=== PATIENT | male | born 1945 | race Caucasian/White ===

== ENCOUNTER 2016-10-09 14:32 | Inpatient (IN) | payer MEDICARE ==
[~2016-10-09] VITALS: Ht 182.9 cm; Wt 105.6 kg
[~2016-10-09 14:32] MED LIST: ALOELIQ9 PO; ALPR0.5T3 PO; AMLO5TAB2 PO; EPA1000C PO; HYDR25TA5 PO; LACTCAP8 PO; LOSA50TA PO; MULTTAB67 PO; OMEP20TA PO; ZOLP10TA3 PO
[2016-10-15] MEDS ORDERED: POTA540T PO (09:02)
[2016-10-15] MEDS ORDERED: TAMS0.4C4 PO (09:02)
[2016-10-15] MEDS ORDERED: WARF-18 PO (09:02)
[2016-10-15] MEDS ORDERED: ASCO500C PO (09:02)
[2016-10-15] MEDS ORDERED: WARF-23 PO (09:02)
[2016-10-16] MEDS ORDERED: POVIDONE IODINE 5% (ANTISEPSIS KIT) 4 APPLICATIONS EACH NARE PRN (05:30)
[2016-10-16] MEDS ORDERED: INSULIN HUMAN REGULAR 1,000 UNITS/10 ML VIAL SQ PRN (05:30)
[2016-10-16] MEDS ORDERED: METOPROLOL TARTRATE 25 MG TAB PO PRN (05:30)
[2016-10-16] MEDS ORDERED: VANCOMYCIN 1000 MG/NS 250 ML (for <70 kg) IV SCH ×2 (05:30)
[2016-10-16] MEDS ORDERED: CHLORHEXIDINE GLUCONATE 2 % 1 PACK (2 CLOTHS) TOPICAL PRN (05:30)
[2016-10-16] MEDS ORDERED: SODIUM CHLORID 0.9% 500 ML IV PRN (05:30)
[2016-10-16] MEDS ORDERED: LACTATED RINGER'S 1000 ML IV PRN (05:30)
[2016-10-16] MEDS: CHLORHEXIDINE GLUCONATE 4% SOLN 120 ML BTL TOPICAL SCH ×2 (05:50→06:10)
[2016-10-16 05:58] VITALS: BP 119/67; PULSE 103; RESP 20; TEMP 97.8; O2SAT 96
[2016-10-16] MEDS ORDERED: SODIUM CHLORIDE 0.9% IV SCH (06:00)
[2016-10-16] MEDS ORDERED: EXPAREL PERI-ARTICULAR INJECTION (TOTAL VOL. 60 ML) P-ARTICULR SCH ×2 (06:00)
[2016-10-16] MEDS ORDERED: TRANEXAMIC ACID IV SCH (06:00)
[2016-10-16 06:29] LABS: INTERNATIONAL NORMALIZED RATIO 1.2 RATIO; PROTHROMBIN TIME - PATIENT 12.8 SEC (9.8-11.6)
[2016-10-16] MEDS ORDERED: MIDAZOLAM HCL 2 MG/2 ML VIAL ONE (06:35)
[2016-10-16] MEDS ORDERED: GENTAMICIN SULFATE 80 MG/2 ML VIAL ONE (06:36)
[2016-10-16] MEDS ORDERED: fentaNYL CITRATE 250 MCG/5 ML AMP ONE (06:46)
[2016-10-16] MEDS ORDERED: DEXAMETHASONE SOD PHOS 4 MG/ML VIAL ONE (06:46)
[2016-10-16] MEDS ORDERED: FAMOTIDINE 20 MG/2 ML VIAL ONE (06:46)
[2016-10-16] MEDS ORDERED: ACETAMINOPHEN 1000 MG/100 ML VIAL IV ONE (06:46)
[2016-10-16] MEDS: ceFAZolin 2 GM PREMIX 50 ML IV SCH ×4 (07:48→19:31)
[2016-10-16] MEDS ORDERED: NEOSTIGMINE 3 MG/3 ML SYR IV ONE (08:10)
[2016-10-16] MEDS ORDERED: PROPOFOL 200 MG/20 ML AMP IV ONE (08:10)
[2016-10-16] MEDS ORDERED: LACTATED RINGER'S 1000 ML INJ 1,000 ML IV ONE (08:11)
[2016-10-16] MEDS ORDERED: PHENYLEPH/NS 1000 MCG/10 ML SYR IV ONE (08:11)
[2016-10-16] MEDS ORDERED: ONDANSETRON HCL 4 MG/2 ML VIAL IV PUSH ONE (08:11)
--- NOTE | 2016-10-16 09:34 | PD.OP ---
cc: Jayden Loredo MD Operative Report Date of Surgery: October 16, 2016 Preoperative Diagnosis: Severe left hip osteoarthritis Postoperative Diagnosis: Procedure: Left total hip arthroplasty via anterior approach Anesthesia: Gen. Surgeon: Jayden Loredo General Adjuster(s): YOSELYN Carlin PA-C The surgical procedure was assisted by my physician assistant purchasing manager. My P.A. presence was necessary throughout this case for the manipulation and positioning of the surgical extremity. My P.A. was assisting me throughout the duration of this procedure. The skill set of a physician assistant purchasing manager was medically necessary to complete this procedure. During the surgical case the surgical instrument maker was working at the back table and the physician assistant purchasing manager was directly assisting me. Operation and Findings: PLAN OF ACTIVITY Weight bear as tolerated. DRAINS: 7-mm RIO drain. IMPLANTS USED DePuy Corail size 15 high offset stem with a size [54] Hodgen Gription cup and a [-2] metal head. DETAILS OF PROCEDURE: This patient has a long history of hip pain. Patient was found to have severe left hip osteoarthritis. The patient had radiographic evidence of joint space narrowing with uttg-rr-vife arthritis and osteophytes around the acetabulum as well as the femoral head. There was also some cystic changes. The patient failed conservative treatment with pain medications, anti-inflammatories, physical therapy, assistive devices including a cane, as well as therapeutic injection of the hip. Patient's hip arthritis was limiting his ability to ambulate and perform activities of daily living. The patient wished to proceed with surgery and informed consent was obtained. Operative site was marked. I discussed both posterior approach and anterior approach with the patient and decision was made for anterior approach. Patient was brought to OR and placed on OR table. IV sedation and general anesthesia was administered by anesthesiologist. Patient positioned on a Ivania table and was given IV antibiotics. Time-out procedure was performed. The hip and thigh were prepped with alcohol followed by Hibiclens. The thigh was draped in the usual sterile fashion. Clean Air Suite was used for this procedure. The procedure began with a 5-inch incision over the anterolateral thigh. Subcutaneous tissue was dissected with Bovie. The fascia over the tensa fasciae latae was incised. Care was taken to avoid injury to the lateral femoral cutaneous nerve. The tensor muscle was retracted laterally. Sartorius was retracted medially. Retractors were now placed. The reflected head of the rectus is now elevated. A capsulotomy was performed over the anterior head capsule. Sutures were placed to help retract the capsule. At this point the femoral head and neck were identified. With soft tissue protected, oscillating saw was used to make a cut through the femoral neck, the femoral head was now removed. At this point attention was turned to preparation of the acetabulum. The labrum was excised. The acetabulum was sequentially reamed up to size [54]. A Hodgen cup was now placed. Fluoroscopy was used to aid in identification of appropriate version. Cup was fully impacted and found to have excellent fit. Hole eliminator was now placed. The liner was now impacted into the cup. At this point the hip was externally rotated. A hook was placed around the proximal femur. The capsule was released off the lateral and medial femur. The hip was now extended and adducted. Retractors were placed around the proximal femur to allow for exposure. A box osteotome was used to remove the lateral cortex of the femoral neck. A broach was used to help lateralize the prosthesis. Canal finder was used to create a path down the canal. Next, the canal was sequentially broached up to size [15]. This was found to be an excellent fit. Calcar planer was placed. A -2 head was placed, and the hip was reduced. The hip was found to have excellent stability with good range of motion. The leg lengths were measured under fluoroscopy and found to be equal compared to preoperatively. Trial broach was removed. The Corail stem was opened. Stem was fully impacted into the proximal femur in appropriate version. The femoral head was placed. The hip was again reduced. Fluoroscopy confirmed excellent alignment of prosthesis. The wound was thoroughly irrigated and capsule was closed with #1 Vicryl. The fascia over the tensor fasciae muscle was closed with #1 Vicryl, subcutaneous tissue was closed with 3-0 Vicryl and the skin was closed with betty and Dermabond skin closure. The capsule layers were injected with a mixture of saline and bupivicaine. Dressings were applied. The patient was transferred to Recovery Room in stable condition. Jayden Loredo MD October 16, 2016 09:34
[2016-10-16] MEDS ORDERED: SODIUM CHLORIDE 0.9% FLUSH 5 ML FLUSH IVF PRN (09:45)
[2016-10-16] MEDS ORDERED: ZOLPIDEM TARTRATE 10 MG TAB PO PRN (09:45)
[2016-10-16] MEDS ORDERED: NALOXONE HCL 0.4 MG/ML AMP IV PRN (09:45)
[2016-10-16] MEDS ORDERED: ONDANSETRON HCL 4 MG/2 ML VIAL IVP PRN (09:45)
[2016-10-16] MEDS ORDERED: oxyCODONE/ACETAMINOPHEN 7.5 MG/325 MG TAB PO PRN (09:45)
[2016-10-16] MEDS ORDERED: MORPHINE SULFATE 4 MG/ML INJ IV PUSH PRN (09:45)
[2016-10-16] MEDS ORDERED: DO NOT ADM ANY ANTICOAGULANT DRUGS PRN (10:00)
[2016-10-16] MEDS ORDERED: Post-op Orders (for Pharmacy) MISC XX ONE (10:00)
[2016-10-16] MEDS ORDERED: PERC7.5T13 PO (10:14)
[2016-10-16] MEDS ORDERED: TRANEXAMIC ACID INJ 1,000 MG in SODIUM CHLORIDE 0.9% INJ 100 ML IV ONE (10:30)
[2016-10-16] MEDS: KETOROLAC TROMETHAMINE 30 MG/ML (IVP) VIAL IV PUSH SCH ×2 (10:35→21:45)
[2016-10-16] MEDS ORDERED: *morphine SULFATE 8 MG/ML PERIprocedure ONLY ONE ×2 (10:55→11:09)
--- NOTE | 2016-10-16 11:07 | RADRPT ---
EXAM DATE/TIME: 10/16/2016 10:29 [facility] COMPARISON: No previous studies available for comparison. INDICATIONS : Post op left hip surgery. MEDICAL HISTORY : None. SURGICAL HISTORY : right hip replacement ENCOUNTER: Initial ACUITY: 1 day PAIN SCORE: 8/10 LOCATION: Left hip and pelvis FINDINGS: Patient is status post left bipolar hip arthroplasty that appears intact and normally aligned. No acu te complication demonstrated. CONCLUSION: Expected radiographic appearance after bipolar left hip arthroplasty. Jovani Reilly MD on October 16, 2016 at 11:04 Board Certified Radiologist. This report was verified electronically.
[2016-10-16] MEDS ORDERED: *HYDROmorphone PF 1 MG VIAL PERIprocedural Use ONLY ONE ×2 (11:26→11:40)
[2016-10-16] MEDS: LACTATED RINGER'S 1000 ML INJ 1,000 ML IV SCH ×2 (11:50→22:08)
[2016-10-16] MEDS ORDERED: DILTIAZEM HCL 25 MG/5 ML VIAL ONE (13:25)
[2016-10-16] MEDS: ALPRAZolam 0.5 MG TAB PO PRN (13:47)
[2016-10-16 13:59] LABS: HEMATOCRIT 42.4 % (39.0-51.0); REVIEW FLAG FINAL
[2016-10-16 15:45] VITALS: BP 103/68; PULSE 68
[2016-10-16 16:00] VITALS: BP 103/68; PULSE 105; RESP 18; TEMP 95.7; O2SAT 91
--- NOTE | 2016-10-16 17:06 | PD.CONS ---
HPI Service [facility] Hospitalists Consult Requested By Primary Care Physician Graham Altamirano MD Diagnoses: History of Present Illness Pt is 71 yo admitted for elective left jeremias. Pt developed some afib/rvr and hypotension in Pacu. Had iv diltiazem and ivf. Pt seen by cardiology who agreed with ivf. On my visit pt on 6n and family present. no cp or sob. on monitor afib controlled. off coumadin for surgery. no rate control meds at home. Review of Systems Other left hip pain Past Family Social History Past Medical History afib htn "bacterial overgrowth" bcc skin melanoma tka bilaterally right jeremias bph hyperlipidemia anxiety gerd Reported Medications Warfarin 2.5 Mg Tab 2.5 Mg PO MO,FR Warfarin 5 Mg Tab 5 Mg PO ,,,SA,[place] Vitamin C (Ascorbic Acid) 500 Mg Cap 500 Mg PO DAILY Tamsulosin (Tamsulosin HCl) 0.4 Mg Cap 0.4 Mg PO DAILY Amlodipine (Amlodipine Besylate) 5 Mg Tab 5 Mg PO HS Alprazolam 0.5 Mg Tab 0.5 Mg PO BID PRN Hydrochlorothiazide 25 Mg Tab 25 Mg PO DAILY Aloe Vera Juice Liq (Aloe Vera Liq) 99.8% Liqd 2 Oz PO DAILY Losartan (Losartan Potassium) 50 Mg Tab 50 Mg PO DAILY Multiple Vitamin 1 Tab 1 Tab PO DAILY Epa 1000 mg (Garrison-3 Fatty Acids) 1 Cap Cap 1 Cap PO DAILY Omeprazole 20 Mg Tab 20 Mg PO DAILY Probiotic (Lactobacillus Acidophilus) 1 Cap Cap 1 Cap PO DAILY Zolpidem (Zolpidem Tartrate) 10 Mg Tab 10 Mg PO HS PRN Allergies: Coded Allergies: Codeine (Unverified Allergy, Severe, SHORTNESS OF BREATHE, 10/15/16) and itching Hydrocodone (Verified Allergy, Severe, Itching, 10/15/16) Family History nc Social History no tob positive etoh Physical Exam Vital Signs nad heart reg lung cta abd s/nt ext no edema Vital Signs Date Time Temp Pulse Resp B/P Pulse Ox O2 Delivery O2 Flow Rate FiO2 10/16/16 16:15 Nasal Cannula 2.00 10/16/16 16:00 95.7 105 18 103/68 91 10/16/16 15:45 68 103/68 10/16/16 14:45 102 15 103/66 96 Nasal Cannula 2 10/16/16 14:30 102 14 99/66 94 Nasal Cannula 2 10/16/16 14:15 101 15 98/65 95 Nasal Cannula 2 10/16/16 14:00 108 14 103/68 92 Nasal Cannula 2 10/16/16 13:45 118 16 88/55 93 Nasal Cannula 2 10/16/16 13:30 120 16 83/51 93 Nasal Cannula 2 10/16/16 13:20 141 18 92 Nasal Cannula 2 10/16/16 13:00 98 14 104/52 94 Nasal Cannula 2 10/16/16 12:00 101 15 112/55 94 Nasal Cannula 2 10/16/16 11:45 102 15 105/54 95 Nasal Cannula 3 10/16/16 11:30 106 15 129/75 96 Nasal Cannula 3 10/16/16 11:15 107 13 96/77 94 Nasal Cannula 3 10/16/16 11:00 97.0 110 15 105/73 95 Nasal Cannula 3 10/16/16 10:45 105 14 93/61 95 Nasal Cannula 3 10/16/16 10:30 118 14 107/63 94 Nasal Cannula 3 10/16/16 10:15 106 14 109/77 91 Nasal Cannula 3 10/16/16 10:05 100 14 98/73 94 Simple Mask 6 10/16/16 10:00 97.4 140 14 80/53 92 Simple Mask 6 10/16/16 05:58 97.8 103 20 119/67 96 Laboratory Laboratory Tests Test 10/16/16 10/16/16 10/16/16 05:50 06:05 13:40 Blood Type A POSITIVE Antibody Screen NEGATIVE Prothrombin Time 12.8 Prothromb Time International 1.2 Ratio Hemoglobin 14.5 Hematocrit 42.4 Result Diagram: 10/16/16 1340 Assessment and Plan Problem List: (1) Atrial fibrillation with RVR Status: Acute Plan: Pt with afib admitted for left jeremias developed afib/rvr and hypotension in Pacu. currently pt more stable cardiology following ivf resume anticoagulation rate control as needed. hold bp meds. resume as needed. IS PT planning d/c home with [facility] (2) Status post total hip replacement, left Status: Acute Plan: see above (3) HTN (hypertension) Status: Chronic Plan: see above Andrew Reich MD October 16, 2016 17:06
--- NOTE | 2016-10-16 17:14 | MB ---
cc: SHILPA MACE DATE OF CONSULTATION 10/16/16 HISTORY OF PRESENT ILLNESS A 71-year-old gentleman who has undergone left hip arthroplasty today. He has a history of chronic atrial fibrillation. Postoperatively, his heart rate was somewhat fast and blood pressure was diminished at 80/70. He was given a bolus of fluid. His heart rate slowed down to 110. He had gotten up out of bed and the heart rate increased to 130 and blood pressure again went down to approximately 100-110 and he was put back to bed and transferred to the floor. We have been asked to see him in followup. He has a history of chronic atrial fibrillation, although he has not required any medications for rate control. He has been on chronic warfarin therapy, which has been held prior to his surgery. He does have a history of hypertension for which he takes losartan and amlodipine. Currently, he is resting comfortably. He is having no chest pain, shortness of breath, lightheadedness or dizziness. He is somewhat sore from his operation. ALLERGIES CODEINE HYDROCODONE MEDICATIONS Have also included hydrochlorothiazide which he also took this morning. PHYSICAL EXAMINATION Vital signs: Blood pressure is 103/60, pulse is approximately 100. NECK: There is no neck vein distension. Carotids are normal. LUNGS: Clear. CARDIOVASCULAR: Irregular rate and rhythm. There is no significant murmur or gallop noted. Heart tones are somewhat distant. ABDOMEN: Soft without tenderness or organomegaly. EXTREMITIES: Reveal no edema. ASSESSMENT The patient has had atrial fibrillation with some low blood pressure. I certainly agree with giving him fluids and encouraged him to take p.o. fluids for now. Hold off on his antihypertensives today and we will assess his need for that tomorrow. I suspect that his atrial fib rapid response is probably secondary to some fluid shifts and losses during surgery. Gentle rehydration should help to restore his heart rate back to below 100 and blood pressures to presurgical levels. Thanks for asking us to see him in consultation. MD EMILIA De Jesus/ /3:12 PM /5:01 PM
--- NOTE | 2016-10-16 17:26 | EKG ---
Date Performed: 10/16/2016 Time Performed: 06:26:02 PTAGE: 71 years EKG: Atrial fibrillation with a controlled ventricular response Left axis deviation Abnormal ECG Compared to prior study of 10/07/2015, there is no significant change. PREVIOUS TRACING : 10/07/2015 18.06 DOCTOR: Leroy Chaudhari Interpretating Date/Time 10/16/2016 17:25:35
[2016-10-16] MEDS: VANCOMYCIN INJ 1,000 MG in SODIUM CHLOR 0.9% 250 ML INJ 250 ML IV SCH (18:29)
--- NOTE | 2016-10-16 18:29 | RADRPT ---
EXAM DATE/TIME: 10/16/2016 08:51 [facility] COMPARISON: No previous studies available for comparison. INDICATIONS : Total left hip replacement. MEDICAL HISTORY : None. SURGICAL HISTORY : None. ENCOUNTER: Initial ACUITY: 1 day PAIN SCORE: Non-responsive. LOCATION: Left hip. FINDINGS: A two view examination of the left hip was performed in the OR. There is a bipolar hip prosthesis se en on the left. This is well placed. Skin betty are seen. CONCLUSION: Good placement of a bipolar hip prosthesis on the left. Jovani Anguiano MD on October 16, 2016 at 18:25 Board Certified Radiologist. This report was verified electronically.
[2016-10-16] MEDS: SODIUM CHLORIDE 0.9% FLUSH 5 ML FLUSH IVF SCH (19:31)
[2016-10-16 19:49] VITALS: PULSE 101
[2016-10-16 20:00] VITALS: BP 95/67; PULSE 99; RESP 18; TEMP 96.5; O2SAT 93
[2016-10-16] MEDS ORDERED: amLODIPine BESYLATE 5 MG TAB PO SCH (21:00)
[2016-10-17] VITALS (9 sets, daily range): BP systolic 98–135; BP diastolic 66–94; PULSE 80–170; RESP 16–19; TEMP 96–98.5; O2SAT 94–97
[2016-10-17] MEDS: ALPRAZolam 0.5 MG TAB PO PRN (01:04)
[2016-10-17] MEDS: ceFAZolin 2 GM PREMIX 50 ML IV SCH (02:07)
[2016-10-17] MEDS: VANCOMYCIN INJ 1,000 MG in SODIUM CHLOR 0.9% 250 ML INJ 250 ML IV SCH (06:30)
[2016-10-17] MEDS ORDERED: ULTR50TA5 PO (06:33)
--- NOTE | 2016-10-17 06:35 | HHI.FF ---
Face to Face Verification Diagnosis: (1) Status post total hip replacement, left Physical Therapy Gait training Hip: Total hip, Protocol: Left Left LE Weight Bearing: WB as tolerated Nursing Nursing: Dressing changes Dressing Changes: Daily dressing change, Coverderm/Primapore (begin adding Xeroform POD 10) I have seen patient Austin Farfan on 10/17/16. My clinical findings support the need for the requested home health care services because: Ltd mobility - disease progression I certify that my clinical findings support that this patient is homebound because: Post-op weakness Sachin Packer October 17, 2016 06:35
--- NOTE | 2016-10-17 06:41 | PD.ORT.PN ---
Subjective Subjective Remarks POD 1 s/p left hip OSMANI -doing well. pain controlled. reports some soreness, but no pain that requires medication. stood up yesterday and made it to chair Objective Vitals Vital Signs Date Time Temp Pulse Resp B/P Pulse Ox O2 Delivery O2 Flow Rate FiO2 10/17/16 04:02 97.9 80 17 100/66 97 10/17/16 00:17 97.2 88 18 98/69 95 10/16/16 20:00 96.5 99 18 95/67 93 10/16/16 19:49 101 10/16/16 16:15 92 Nasal Cannula 2.00 10/16/16 16:00 95.7 105 18 103/68 91 10/16/16 15:45 68 103/68 10/16/16 14:45 102 15 103/66 96 Nasal Cannula 2 10/16/16 14:30 102 14 99/66 94 Nasal Cannula 2 10/16/16 14:15 101 15 98/65 95 Nasal Cannula 2 10/16/16 14:00 108 14 103/68 92 Nasal Cannula 2 10/16/16 13:45 118 16 88/55 93 Nasal Cannula 2 10/16/16 13:30 120 16 83/51 93 Nasal Cannula 2 10/16/16 13:20 141 18 92 Nasal Cannula 2 10/16/16 13:00 98 14 104/52 94 Nasal Cannula 2 10/16/16 12:00 101 15 112/55 94 Nasal Cannula 2 10/16/16 11:45 102 15 105/54 95 Nasal Cannula 3 10/16/16 11:30 106 15 129/75 96 Nasal Cannula 3 10/16/16 11:15 107 13 96/77 94 Nasal Cannula 3 10/16/16 11:00 97.0 110 15 105/73 95 Nasal Cannula 3 10/16/16 10:45 105 14 93/61 95 Nasal Cannula 3 10/16/16 10:30 118 14 107/63 94 Nasal Cannula 3 10/16/16 10:15 106 14 109/77 91 Nasal Cannula 3 10/16/16 10:05 100 14 98/73 94 Simple Mask 6 10/16/16 10:00 97.4 140 14 80/53 92 Simple Mask 6 I/O 10/16/16 10/16/16 10/16/16 10/17/16 10/17/16 10/17/16 07:00 15:00 23:00 07:00 15:00 23:00 Intake Total 2520 ml 480 ml 480 ml Output Total 715 ml 380 ml 500 ml Balance 1805 ml 100 ml -20 ml Intake Oral 480 ml 480 ml IV Total 520 ml Other 2000 ml Output Urine Total 300 ml 300 ml 450 ml Drainage Total 115 ml 80 ml 50 ml Estimated Blood Loss 300 ml Result Diagram: 10/16/16 1340 Imaging Last 24 hours Impressions Hip and Pelvis X-Ray 10/16/16 0906 Signed Impressions: Service Date/Time: October 10:29 - CONCLUSION: Expected radiographic appearance after bipolar left hip arthroplasty. Jovani Reilly MD Objective Remarks LLE: dressings clean and dry. intact. NVI. + drain Assessment & Plan Assessment and Plan 1) Left Anterior OSMANI - POD 1 -WBAT -gait training with PT -plan for DC of drain with dressing change POD 2 -CM for HHC -DC percocet and change to Ultram 50mg 1PO Q4H -Plan for home with HHC tomorrow -f/u wtzach Live or MICHELLE in 2 weeks Sachin Packer October 17, 2016 06:41
[2016-10-17 06:58] LABS: INTERNATIONAL NORMALIZED RATIO 1.1 RATIO; PROTHROMBIN TIME - PATIENT 12.3 SEC (9.8-11.6)
[2016-10-17 07:03] LABS: HEMATOCRIT 37.5 % (39.0-51.0); REVIEW FLAG FINAL
[2016-10-17 07:18] LABS: BICARBONATE 29.8 MEQ/L (21.0-32.0); POTASSIUM 3.5 MEQ/L (3.5-5.1)
--- NOTE | 2016-10-17 08:33 | PD.CARD.PN ---
Subjective Subjective Remarks Feels well. No chest pain or dyspnea. HR 90-100 Objective Vital Signs / I&O Vital Signs Date Time Temp Pulse Resp B/P Pulse Ox O2 Delivery O2 Flow Rate FiO2 10/17/16 07:50 97.3 80 18 109/74 94 10/17/16 04:02 97.9 80 17 100/66 97 10/17/16 00:17 97.2 88 18 98/69 95 10/16/16 20:00 96.5 99 18 95/67 93 10/16/16 19:49 101 10/16/16 16:15 92 Nasal Cannula 2.00 10/16/16 16:00 95.7 105 18 103/68 91 10/16/16 15:45 68 103/68 10/16/16 14:45 102 15 103/66 96 Nasal Cannula 2 10/16/16 14:30 102 14 99/66 94 Nasal Cannula 2 10/16/16 14:15 101 15 98/65 95 Nasal Cannula 2 10/16/16 14:00 108 14 103/68 92 Nasal Cannula 2 10/16/16 13:45 118 16 88/55 93 Nasal Cannula 2 10/16/16 13:30 120 16 83/51 93 Nasal Cannula 2 10/16/16 13:20 141 18 92 Nasal Cannula 2 10/16/16 13:00 98 14 104/52 94 Nasal Cannula 2 10/16/16 12:00 101 15 112/55 94 Nasal Cannula 2 10/16/16 11:45 102 15 105/54 95 Nasal Cannula 3 10/16/16 11:30 106 15 129/75 96 Nasal Cannula 3 10/16/16 11:15 107 13 96/77 94 Nasal Cannula 3 10/16/16 11:00 97.0 110 15 105/73 95 Nasal Cannula 3 10/16/16 10:45 105 14 93/61 95 Nasal Cannula 3 10/16/16 10:30 118 14 107/63 94 Nasal Cannula 3 10/16/16 10:15 106 14 109/77 91 Nasal Cannula 3 10/16/16 10:05 100 14 98/73 94 Simple Mask 6 10/16/16 10:00 97.4 140 14 80/53 92 Simple Mask 6 I/O 10/16/16 10/16/16 10/16/16 10/17/16 10/17/16 10/17/16 07:00 15:00 23:00 07:00 15:00 23:00 Intake Total 2520 ml 480 ml 480 ml Output Total 715 ml 380 ml 500 ml Balance 1805 ml 100 ml -20 ml Intake Oral 480 ml 480 ml IV Total 520 ml Other 2000 ml Output Urine Total 300 ml 300 ml 450 ml Drainage Total 115 ml 80 ml 50 ml Estimated Blood Loss 300 ml Physical Exam Lungs clear irregular HR Laboratory Laboratory Tests Test 10/16/16 10/17/16 13:40 06:03 Hemoglobin 14.5 GM/DL 12.5 GM/DL Hematocrit 42.4 % 37.5 % Prothrombin Time 12.3 SEC Prothromb Time International 1.1 RATIO Ratio Sodium Level 139 MEQ/L Potassium Level 3.5 MEQ/L Chloride Level 103 MEQ/L Carbon Dioxide Level 29.8 MEQ/L Anion Gap 6 MEQ/L Blood Urea Nitrogen 18 MG/DL Creatinine 0.98 MG/DL Estimat Glomerular Filtration 75 ML/MIN Rate Random Glucose 94 MG/DL Calcium Level 8.5 MG/DL Assessment and Plan Assessment and Plan Stable from CV standpoint. OK to D/C will see in office next week for HR check. INR scheduled for Leroy Chaudhari MD October 17, 2016 08:33
--- NOTE | 2016-10-17 08:41 | HHI.PR ---
Subjective Remarks Pt sitting up in chair, no specific complaints. Pain is controlled Pt tolerating his breakfast. HR is currently controlled on telemetry, pt noted to have some briefly elevated HR into the 120-130's periodically overnight and this morning BP is stable off home meds Objective Vitals Vital Signs Date Time Temp Pulse Resp B/P Pulse Ox O2 Delivery O2 Flow Rate FiO2 10/17/16 07:50 97.3 80 18 109/74 94 10/17/16 04:02 97.9 80 17 100/66 97 10/17/16 00:17 97.2 88 18 98/69 95 10/16/16 20:00 96.5 99 18 95/67 93 10/16/16 19:49 101 10/16/16 16:15 92 Nasal Cannula 2.00 10/16/16 16:00 95.7 105 18 103/68 91 10/16/16 15:45 68 103/68 10/16/16 14:45 102 15 103/66 96 Nasal Cannula 2 10/16/16 14:30 102 14 99/66 94 Nasal Cannula 2 10/16/16 14:15 101 15 98/65 95 Nasal Cannula 2 10/16/16 14:00 108 14 103/68 92 Nasal Cannula 2 10/16/16 13:45 118 16 88/55 93 Nasal Cannula 2 10/16/16 13:30 120 16 83/51 93 Nasal Cannula 2 10/16/16 13:20 141 18 92 Nasal Cannula 2 10/16/16 13:00 98 14 104/52 94 Nasal Cannula 2 10/16/16 12:00 101 15 112/55 94 Nasal Cannula 2 10/16/16 11:45 102 15 105/54 95 Nasal Cannula 3 10/16/16 11:30 106 15 129/75 96 Nasal Cannula 3 10/16/16 11:15 107 13 96/77 94 Nasal Cannula 3 10/16/16 11:00 97.0 110 15 105/73 95 Nasal Cannula 3 10/16/16 10:45 105 14 93/61 95 Nasal Cannula 3 10/16/16 10:30 118 14 107/63 94 Nasal Cannula 3 10/16/16 10:15 106 14 109/77 91 Nasal Cannula 3 10/16/16 10:05 100 14 98/73 94 Simple Mask 6 10/16/16 10:00 97.4 140 14 80/53 92 Simple Mask 6 10/16/16 10/16/16 10/17/16 15:00 23:00 07:00 Intake Total 2520 ml 480 ml 480 ml Output Total 715 ml 380 ml 500 ml Balance 1805 ml 100 ml -20 ml Intake Oral 480 ml 480 ml IV Total 520 ml Other 2000 ml Output Urine Total 300 ml 300 ml 450 ml Drainage Total 115 ml 80 ml 50 ml Estimated Blood Loss 300 ml Result Diagram: 10/17/16 0603 10/17/16 0603 Other Results Laboratory Tests Test 10/16/16 10/16/16 10/16/16 10/17/16 05:50 06:05 13:40 06:03 Blood Type A POSITIVE Antibody Screen NEGATIVE Prothrombin Time 12.8 SEC 12.3 SEC Prothromb Time International 1.2 RATIO 1.1 RATIO Ratio Hemoglobin 14.5 GM/DL 12.5 GM/DL Hematocrit 42.4 % 37.5 % Sodium Level 139 MEQ/L Potassium Level 3.5 MEQ/L Chloride Level 103 MEQ/L Carbon Dioxide Level 29.8 MEQ/L Anion Gap 6 MEQ/L Blood Urea Nitrogen 18 MG/DL Creatinine 0.98 MG/DL Estimat Glomerular Filtration 75 ML/MIN Rate Random Glucose 94 MG/DL Calcium Level 8.5 MG/DL Imaging Last Impressions Hip and Pelvis X-Ray 10/16/16 0938 Signed Impressions: Service Date/Time: October 10:29 - CONCLUSION: Expected radiographic appearance after bipolar left hip arthroplasty. Jovani Reilly MD Hip X-Ray 10/16/16 0000 Signed Impressions: Service Date/Time: October 08:51 - CONCLUSION: Good placement of a bipolar hip prosthesis on the left. Jovani Anguiano MD Objective Remarks General: NAD, AAOx3 Chest: CTA Cardiac: Irregular, HR controlled Abd: Decreased bowel sounds, mildly distended, nontender Ext: No edema A/P Problem List: (1) Atrial fibrillation with RVR Status: Acute Plan: - Pt with A. fib admitted for Left OSMANI performed on 10/16/[address] Live - Pt developed A. fib/RVR and hypotension in PACU. - Cardiology was consulted, no rate controlling meds necessary at this time. - Pt improved with IVF hydration - Pts BP more stable today - HR periodically elevating into the 120-130's on telemetry, may be related to ambulation or pain. - Coumadin to be resumed today - Rate control as needed. - Pts home BP meds on hold currently, resume as needed. - IS - PT - Pt is planned for HHC/PT at discharge. (2) Status post total hip replacement, left Status: Acute Plan: - See above (3) HTN (hypertension) Status: Chronic Plan: - See above Assessment and Plan Patient examined. Assessment and plan formulated with Latsiha Jaramillo PA-C. I agree with the above. stable. afib controlled. on coumadin. no rate control at this time. intermittent confusion from pain meds. family says this is typical. d/c tomorrow. ADDENDUM: CALLED BY RN. PT NOW MORE CONFUSED AND RIPPED IV OUT, THEN RAN OUT INTO THE ELEVATOR. SUBSEQUENTLY FELL. FAMILY TOLD CHARGE HE DOES DRINK ETOH. APPEARS TO HAVE DT'S ATIVAN AND W/D PROTOCOL STARTED. RESTRAINTS. Latisha Jaramillo October 17, 2016 08:41 Andrew Reich MD October 17, 2016 13:49
[2016-10-17] MEDS ORDERED: BISACODYL 10 MG SUPP RECTAL PRN (08:45)
[2016-10-17] MEDS ORDERED: LOSARTAN 50 MG TAB PO SCH (09:00)
[2016-10-17] MEDS: SODIUM CHLORIDE 0.9% FLUSH 5 ML FLUSH IVF SCH ×2 (09:00→21:00)
[2016-10-17] MEDS: HYDROCHLOROTHIAZIDE 25 MG TAB PO SCH (09:35)
[2016-10-17] MEDS: LACTOBACILLUS ACIDOPHILUS TAB PO SCH (09:35)
[2016-10-17] MEDS: MULTIVITAMIN TAB PO SCH (09:35)
[2016-10-17] MEDS: TAMSULOSIN HCL 0.4 MG CAP PO SCH (09:35)
[2016-10-17] MEDS: PANTOPRAZOLE SOD 20 MG DELAYED RELEASE TAB PO SCH (09:35)
[2016-10-17] MEDS: ASCORBIC ACID 500 MG TAB PO SCH (09:35)
[2016-10-17] MEDS: LACTATED RINGER'S 1000 ML INJ 1,000 ML IV SCH ×2 (09:36→21:18)
[2016-10-17] MEDS: ENOXAPARIN SODIUM 40 MG/0.4 ML SYRINGE SQ SCH (09:36)
[2016-10-17] MEDS: KETOROLAC TROMETHAMINE 30 MG/ML (IVP) VIAL IV PUSH SCH ×2 (09:40→21:18)
[2016-10-17] MEDS: WARFARIN SOD 2.5 MG TAB PO SCH (16:39)
[2016-10-17] MEDS: traMADol HCL 50 MG TAB PO PRN (16:39)
[2016-10-17] MEDS ORDERED: LORazepam 2 MG/ML VIAL IM ONE (20:00)
[2016-10-17] MEDS ORDERED: LORazepam 2 MG/ML VIAL IM PRN (20:30)
[2016-10-17] MEDS ORDERED: LORazepam 2 MG TAB PO PRN (20:30)
[2016-10-17] MEDS ORDERED: LORazepam 2 MG/ML VIAL IV PUSH PRN ×4 (20:30)
[2016-10-17] MEDS ORDERED: FLUMAZENIL 0.5 MG/5 ML VIAL IV PUSH PRN (20:30)
--- NOTE | 2016-10-17 20:30 | RADRPT ---
EXAM DATE/TIME: 10/17/2016 20:03 [facility] COMPARISON: HIP LEFT LATERAL ONLY W AP PELVIS, October 16, 2016, 10:29. INDICATIONS : Evaluate for left hip dislocation MEDICAL HISTORY : None. SURGICAL HISTORY : Left hip replacement ENCOUNTER: Subsequent ACUITY: 1 day PAIN SCORE: 7/10 LOCATION: Left hip FINDINGS: Single view of the left hip shows normally aligned bipolar arthroplasty. No fracture seen. CONCLUSION: No evidence of fracture or dislocation of the left bipolar hip arthroplasty. Jovani Reilly MD on October 17, 2016 at 20:28 Board Certified Radiologist. This report was verified electronically.
[2016-10-17] MEDS: DOCUSATE SODIUM 100 MG CAP PO SCH (21:00)
[2016-10-17] MEDS: METOPROLOL TARTRATE 50 MG TAB PO SCH (23:16)
[2016-10-18] VITALS (8 sets, daily range): BP systolic 105–131; BP diastolic 64–80; PULSE 84–102; RESP 18–22; TEMP 97.6–99.1; O2SAT 90–98
[2016-10-18 04:51] LABS: INTERNATIONAL NORMALIZED RATIO 1.1 RATIO; PROTHROMBIN TIME - PATIENT 11.8 SEC (9.8-11.6)
--- NOTE | 2016-10-18 06:49 | PD.ORT.PN ---
Subjective Subjective Remarks Significant confusion last night. Was out of bed and was forced back into bed with restraints. States he drinks 3 vodka drinks daily Objective Vitals Vital Signs Date Time Temp Pulse Resp B/P Pulse Ox O2 Delivery O2 Flow Rate FiO2 10/18/16 04:00 98.6 96 19 131/69 92 10/18/16 00:56 97.9 91 19 113/64 95 10/17/16 22:20 170 10/17/16 21:56 110 10/17/16 20:56 98.5 106 17 135/94 95 10/17/16 16:00 96.0 88 19 109/78 97 10/17/16 12:00 97.0 98 18 102/72 95 10/17/16 07:50 97.3 80 18 109/74 94 I/O 10/17/16 10/17/16 10/17/16 10/18/16 10/18/16 10/18/16 07:00 15:00 23:00 07:00 15:00 23:00 Intake Total 480 ml 2010 ml 240 ml 200 ml Output Total 500 ml 475 ml Balance -20 ml 1535 ml 240 ml 200 ml Intake Oral 480 ml 480 ml 240 ml 200 ml IV Total 1530 ml Output Urine Total 450 ml 450 ml Drainage Total 50 ml 25 ml # Voids 4 1 1 # Bowel Movements 0 0 Result Diagram: 10/17/16 0603 10/17/16 0603 Other Results Laboratory Tests Test 10/18/16 04:12 Prothrombin Time 11.8 SEC (9.8-11.6) Prothromb Time International 1.1 RATIO Ratio Imaging Last 24 hours Impressions Hip and Pelvis X-Ray 10/16/16 0938 Signed Impressions: Service Date/Time: October 10:29 - CONCLUSION: Expected radiographic appearance after bipolar left hip arthroplasty. Jovani Reilly MD Objective Remarks LLE: dressings clean and dry. intact. NVI. Assessment & Plan Assessment and Plan 1) Left Anterior OSMANI - POD 2 -WBAT -gait training with PT -DAILY dressing change -CM for HHC - Ultram 50mg 1PO Q4H -Medical management for EtOH withdrawal Will plan on discharge when patient is alert and oriented -f/u with Calos or MICHELLE in 2 weeks Rakesh Rizo Jr. October 18, 2016 06:49
[2016-10-18] MEDS: ENOXAPARIN SODIUM 40 MG/0.4 ML SYRINGE SQ SCH (08:38)
[2016-10-18] MEDS: DOCUSATE SODIUM 100 MG CAP PO SCH ×2 (08:38→21:30)
[2016-10-18] MEDS: HYDROCHLOROTHIAZIDE 25 MG TAB PO SCH (08:39)
[2016-10-18] MEDS: METOPROLOL TARTRATE 50 MG TAB PO SCH ×2 (08:39→21:30)
[2016-10-18] MEDS: LACTOBACILLUS ACIDOPHILUS TAB PO SCH (08:39)
[2016-10-18] MEDS: PANTOPRAZOLE SOD 20 MG DELAYED RELEASE TAB PO SCH (08:39)
[2016-10-18] MEDS: traMADol HCL 50 MG TAB PO PRN ×4 (08:39→21:32)
[2016-10-18] MEDS: TAMSULOSIN HCL 0.4 MG CAP PO SCH (08:39)
[2016-10-18] MEDS: MULTIVITAMIN TAB PO SCH (08:39)
[2016-10-18] MEDS: ASCORBIC ACID 500 MG TAB PO SCH (08:39)
[2016-10-18] MEDS: LORazepam 1 MG TAB PO PRN ×4 (08:45→21:33)
[2016-10-18] MEDS: SODIUM CHLORIDE 0.9% FLUSH 5 ML FLUSH IVF SCH ×2 (08:48→21:00)
[2016-10-18] MEDS: LACTATED RINGER'S 1000 ML INJ 1,000 ML IV SCH ×2 (11:38→22:56)
--- NOTE | 2016-10-18 16:06 | HHI.PR ---
Subjective Remarks pt developed dt's last night. fled into elevator after pulling iv out he fell and then brought back to his bed for restraints and ativan. Objective Vitals heart reg lung cta abd s/nt ext no edema Vital Signs Date Time Temp Pulse Resp B/P Pulse Ox O2 Delivery O2 Flow Rate FiO2 10/18/16 12:56 98.3 89 18 113/69 90 10/18/16 08:56 99.1 102 18 115/73 92 10/18/16 04:00 98.6 96 19 131/69 92 10/18/16 00:56 97.9 91 19 113/64 95 10/17/16 22:20 170 10/17/16 21:56 110 10/17/16 20:56 98.5 106 17 135/94 95 10/17/16 10/17/16 10/18/16 15:00 23:00 07:00 Intake Total 2010 ml 240 ml 200 ml Output Total 475 ml Balance 1535 ml 240 ml 200 ml Intake Oral 480 ml 240 ml 200 ml IV Total 1530 ml Output Urine Total 450 ml Drainage Total 25 ml # Voids 4 1 1 # Bowel Movements 0 0 Result Diagram: 10/17/16 0603 10/17/16 0603 Imaging Last Impressions Hip and Pelvis X-Ray 10/16/16 0938 Signed Impressions: Service Date/Time: October 10:29 - CONCLUSION: Expected radiographic appearance after bipolar left hip arthroplasty. Jovani Reilly MD Hip X-Ray 10/16/16 0000 Signed Impressions: Service Date/Time: October 08:51 - CONCLUSION: Good placement of a bipolar hip prosthesis on the left. Jovani Anguiano MD A/P Problem List: (1) Atrial fibrillation with RVR Status: Acute Plan: - Pt with A. fib admitted for Left OSMANI performed on 10/16/[address] Live - Pt developed A. fib/RVR and hypotension in PACU. - Cardiology was consulted, no rate controlling meds necessary at this time. - Pt improved with IVF hydration - Pts BP more stable on 10/18 PT developed DT's and tried to leave AMA. He made it to the elevator where he fell down. pulled out his iv. Pt placed in restraints and on CIWA protocol. Metoprolol started after alot of tachycardia last night. currently more stable. d/c held. (2) Status post total hip replacement, left Status: Acute Plan: - See above (3) HTN (hypertension) Status: Chronic Plan: - See above Andrew Reich MD October 18, 2016 16:06 Patient examined. Assessment and plan formulated with Latisha Jaramillo PA-C. I agree with the above. stable. afib controlled. on coumadin. no rate control at this time. intermittent confusion from pain meds. family says this is typical. d/c tomorrow. ADDENDUM: CALLED BY RN. PT NOW MORE CONFUSED AND RIPPED IV OUT, THEN RAN OUT INTO THE ELEVATOR. SUBSEQUENTLY FELL. FAMILY TOLD CHARGE HE DOES DRINK ETOH. APPEARS TO HAVE DT'S ATIVAN AND W/D PROTOCOL STARTED. RESTRAINTS. Andrew Reich MD October 18, 2016 16:06
[2016-10-18] MEDS: WARFARIN SOD 5 MG TAB PO SCH (17:26)
[2016-10-19] VITALS (7 sets, daily range): BP systolic 97–127; BP diastolic 66–83; PULSE 83–100; RESP 18–22; TEMP 95.8–98; O2SAT 93–95
[2016-10-19 05:37] LABS: INTERNATIONAL NORMALIZED RATIO 1.1 RATIO
--- NOTE | 2016-10-19 06:29 | PD.ORT.PN ---
Subjective Subjective Remarks POD 3 s/p left hip OSMANI -doing well. pain controlled. nurse reports has been doing better. was able to remove restraints. Objective Vitals Vital Signs Date Time Temp Pulse Resp B/P Pulse Ox O2 Delivery O2 Flow Rate FiO2 10/18/16 22:05 92 10/18/16 20:56 97.6 98 22 119/80 93 10/18/16 19:12 Room Air 10/18/16 19:12 Room Air 10/18/16 16:56 97.8 90 18 105/70 94 10/18/16 12:56 98.3 89 18 113/69 90 10/18/16 08:56 99.1 102 18 115/73 92 I/O 10/18/16 10/18/16 10/18/16 10/19/16 10/19/16 10/19/16 07:00 15:00 23:00 07:00 15:00 23:00 Intake Total 200 ml 980 ml 720 ml Balance 200 ml 980 ml 720 ml Intake Oral 200 ml 980 ml 720 ml # Voids 1 6 3 # Bowel Movements 0 0 1 Result Diagram: 10/17/16 0603 10/17/16 0603 Other Results Laboratory Tests Test 10/19/16 05:00 Prothrombin Time 12.0 SEC (9.8-11.6) Prothromb Time International 1.1 RATIO Ratio Imaging Last 24 hours Impressions Hip and Pelvis X-Ray 10/16/16 0938 Signed Impressions: Service Date/Time: October 10:29 - CONCLUSION: Expected radiographic appearance after bipolar left hip arthroplasty. Jovani Reilly MD Objective Remarks LLE: dressings clean and dry. intact. NVI. Assessment & Plan Assessment and Plan 1) Left Anterior OSMANI - POD 3 -WBAT -gait training with PT -DAILY dressing change -CM for HHC - Ultram 50mg 1PO Q4H -Medical management for EtOH withdrawal Will plan on discharge when patient is alert and oriented -f/u with Calos or MICHELLE in 2 weeks Sachin Packer October 19, 2016 06:29
[2016-10-19] MEDS: ENOXAPARIN SODIUM 40 MG/0.4 ML SYRINGE SQ SCH (09:35)
[2016-10-19] MEDS: PANTOPRAZOLE SOD 20 MG DELAYED RELEASE TAB PO SCH (09:36)
[2016-10-19] MEDS: TAMSULOSIN HCL 0.4 MG CAP PO SCH (09:36)
[2016-10-19] MEDS: METOPROLOL TARTRATE 50 MG TAB PO SCH ×2 (09:36→19:38)
[2016-10-19] MEDS: THIAMINE HCL 100 MG TAB PO SCH (09:36)
[2016-10-19] MEDS: DOCUSATE SODIUM 100 MG CAP PO SCH ×2 (09:36→19:38)
[2016-10-19] MEDS: MAGNESIUM HYDROXIDE SUSP 30 ML CUP PO PRN (09:36)
[2016-10-19] MEDS: FOLIC ACID 1 MG TAB PO SCH (09:36)
[2016-10-19] MEDS: HYDROCHLOROTHIAZIDE 25 MG TAB PO SCH (09:36)
[2016-10-19] MEDS: ALPRAZolam 0.5 MG TAB PO PRN ×2 (09:36→23:20)
[2016-10-19] MEDS: SODIUM CHLORIDE 0.9% FLUSH 5 ML FLUSH IVF SCH ×2 (09:37→19:33)
[2016-10-19] MEDS: MULTIVITAMIN TAB PO SCH (09:37)
[2016-10-19] MEDS: ASCORBIC ACID 500 MG TAB PO SCH (09:37)
[2016-10-19] MEDS: LACTOBACILLUS ACIDOPHILUS TAB PO SCH (09:37)
[2016-10-19] MEDS: traMADol HCL 50 MG TAB PO PRN ×2 (09:38→19:38)
--- NOTE | 2016-10-19 10:49 | HHI.PR ---
Subjective Remarks more oriented and cooperative he doesn't recall the event from Thursday night. Objective Vitals heart reg lung cta abd s/nt ext no edema Vital Signs Date Time Temp Pulse Resp B/P Pulse Ox O2 Delivery O2 Flow Rate FiO2 10/19/16 08:00 97.7 91 18 126/67 94 10/19/16 04:00 98.0 83 18 121/83 93 10/19/16 00:00 98.0 84 22 108/76 94 10/18/16 22:05 92 10/18/16 20:56 97.6 98 22 119/80 93 10/18/16 19:12 Room Air 10/18/16 19:12 Room Air 10/18/16 16:56 97.8 90 18 105/70 94 10/18/16 12:56 98.3 89 18 113/69 90 10/18/16 10/18/16 10/19/16 15:00 23:00 07:00 Intake Total 980 ml 720 ml Output Total 300 ml Balance 980 ml 720 ml -300 ml Intake Oral 980 ml 720 ml Output Urine Total 300 ml # Voids 6 3 # Bowel Movements 0 1 Result Diagram: 10/17/16 0603 10/17/16 0603 Imaging Last Impressions Hip and Pelvis X-Ray 10/16/16 0938 Signed Impressions: Service Date/Time: October 10:29 - CONCLUSION: Expected radiographic appearance after bipolar left hip arthroplasty. Jovani Reilly MD Hip X-Ray 10/16/16 0000 Signed Impressions: Service Date/Time: October 08:51 - CONCLUSION: Good placement of a bipolar hip prosthesis on the left. Jovani Anguiano MD A/P Problem List: (1) Atrial fibrillation with RVR Status: Acute Plan: - Pt with A. fib admitted for Left OSMANI performed on 10/16/[address] Live - Pt developed A. fib/RVR and hypotension in PACU. - Cardiology was consulted, no rate controlling meds necessary at this time. - Pt improved with IVF hydration - Pts BP more stable on 10/18 PT developed DT's and tried to leave AMA. He made it to the elevator where he fell down. pulled out his iv. Pt placed in restraints and on CIWA protocol. Metoprolol started after alot of tachycardia currently more stable. I think he could be discharged tomorrow. Pt keeps changing the amt he drinks. sounds like usually 3 or 4 glasses vodka (2) Status post total hip replacement, left Status: Acute Plan: - See above (3) HTN (hypertension) Status: Chronic Plan: - See above Andrew Reich MD October 19, 2016 10:49
[2016-10-19] MEDS: LACTATED RINGER'S 1000 ML INJ 1,000 ML IV SCH (12:38)
[2016-10-19] MEDS: WARFARIN SOD 5 MG TAB PO SCH (16:28)
[2016-10-19] MEDS: LORazepam 1 MG TAB PO PRN (23:20)
[2016-10-20] VITALS (8 sets, daily range): BP systolic 101–127; BP diastolic 68–81; PULSE 70–92; RESP 17–18; TEMP 96.3–97.8; O2SAT 93–96
[2016-10-20] MEDS: LACTATED RINGER'S 1000 ML INJ 1,000 ML IV SCH ×2 (01:08→13:38)
--- NOTE | 2016-10-20 06:42 | PD.ORT.PN ---
Subjective Subjective Remarks POD 4 s/p left hip OSMANI -doing well. pain controlled. nurse reports has been doing better. was able to remove restraints. patient seems more lucid. Objective Vitals Vital Signs Date Time Temp Pulse Resp B/P Pulse Ox O2 Delivery O2 Flow Rate FiO2 10/20/16 04:37 97.2 83 17 106/71 95 10/20/16 00:35 96.9 85 17 127/79 94 10/19/16 20:40 98.0 88 18 127/81 94 10/19/16 16:00 95.8 84 18 107/66 95 10/19/16 12:00 96.2 98 18 97/67 95 10/19/16 08:00 97.7 91 18 126/67 94 I/O 10/19/16 10/19/16 10/19/16 10/20/16 10/20/16 10/20/16 07:00 15:00 23:00 07:00 15:00 23:00 Intake Total 480 ml 240 ml Output Total 300 ml Balance -300 ml 480 ml 240 ml Intake Oral 480 ml 240 ml Output Urine Total 300 ml # Voids 4 1 # Bowel Movements 0 0 Result Diagram: 10/17/16 0603 10/17/16 0603 Imaging Last 24 hours Impressions Hip and Pelvis X-Ray 10/16/16 0938 Signed Impressions: Service Date/Time: October 10:29 - CONCLUSION: Expected radiographic appearance after bipolar left hip arthroplasty. Jovani Reilly MD Objective Remarks LLE: dressings clean and dry. intact. NVI. patient oriented to self. not oriented to place or time but aware he does not know where he is. Assessment & Plan Assessment and Plan 1) Left Anterior OSMANI - POD 4 -WBAT -gait training with PT -DAILY dressing change -CM for HHC - Ultram 50mg 1PO Q4H -Medical management for EtOH withdrawal Will plan on discharge when patient is alert and oriented -f/u with Calos or MICHELLE in 2 weeks Sachin Packer October 20, 2016 06:42
[2016-10-20] MEDS: DOCUSATE SODIUM 100 MG CAP PO SCH ×2 (08:26→20:44)
[2016-10-20] MEDS: THIAMINE HCL 100 MG TAB PO SCH (08:26)
[2016-10-20] MEDS: MAGNESIUM HYDROXIDE SUSP 30 ML CUP PO PRN (08:26)
[2016-10-20] MEDS: MULTIVITAMIN TAB PO SCH (08:27)
[2016-10-20] MEDS: LACTOBACILLUS ACIDOPHILUS TAB PO SCH (08:27)
[2016-10-20] MEDS: traMADol HCL 50 MG TAB PO PRN ×2 (08:27→20:43)
[2016-10-20] MEDS: HYDROCHLOROTHIAZIDE 25 MG TAB PO SCH (08:29)
[2016-10-20] MEDS: FOLIC ACID 1 MG TAB PO SCH (08:29)
[2016-10-20] MEDS: TAMSULOSIN HCL 0.4 MG CAP PO SCH (08:29)
[2016-10-20] MEDS: ASCORBIC ACID 500 MG TAB PO SCH (08:29)
[2016-10-20] MEDS: ALPRAZolam 0.5 MG TAB PO PRN (08:29)
[2016-10-20] MEDS: METOPROLOL TARTRATE 50 MG TAB PO SCH ×2 (08:29→20:42)
[2016-10-20] MEDS: PANTOPRAZOLE SOD 20 MG DELAYED RELEASE TAB PO SCH (08:29)
[2016-10-20] MEDS: SODIUM CHLORIDE 0.9% FLUSH 5 ML FLUSH IVF SCH ×2 (08:30→20:43)
--- NOTE | 2016-10-20 16:41 | HHI.PR ---
Subjective Remarks Pt remains confused and agitated at times A&O x 2 very impulsive Objective Vitals Vital Signs Date Time Temp Pulse Resp B/P Pulse Ox O2 Delivery O2 Flow Rate FiO2 10/20/16 12:00 97.2 77 18 101/73 95 10/20/16 07:48 96.3 73 18 114/81 93 10/20/16 04:37 97.2 83 17 106/71 95 10/20/16 00:35 96.9 85 17 127/79 94 10/19/16 20:40 98.0 88 18 127/81 94 10/19/16 10/19/16 10/20/16 15:00 23:00 07:00 Intake Total 480 ml 240 ml 240 ml Balance 480 ml 240 ml 240 ml Intake Oral 480 ml 240 ml 240 ml # Voids 4 1 4 # Bowel Movements 0 0 0 Result Diagram: 10/17/16 0603 10/17/16 0603 Imaging Last Impressions Hip and Pelvis X-Ray 10/16/16 0938 Signed Impressions: Service Date/Time: October 10:29 - CONCLUSION: Expected radiographic appearance after bipolar left hip arthroplasty. Jovani Reilly MD Hip X-Ray 10/16/16 0000 Signed Impressions: Service Date/Time: October 08:51 - CONCLUSION: Good placement of a bipolar hip prosthesis on the left. Jovani Anguiano MD Objective Remarks GENERAL: This is a well-nourished, well-developed patient, in no apparent distress. CARDIOVASCULAR: Regular rate and rhythm without murmurs, gallops, or rubs. RESPIRATORY: Clear to auscultation. Breath sounds equal bilaterally. No wheezes , rales, or rhonchi. GASTROINTESTINAL: Abdomen soft, non-tender, nondistended. Normal active bowel sounds MUSCULOSKELETAL: Extremities without clubbing, cyanosis, or edema. NEURO: Alert & Oriented x2. Moves all ext x4 A/P Problem List: (1) ETOH abuse Status: Acute Plan: - discharge held on 10/19/16 d/t etoh withdrawal - scheduled xanax - prn ativan - anticipate d/c in 1-2 days (2) Atrial fibrillation with RVR Status: Acute Plan: - Pt with Leticia garcia admitted for Left OSMANI performed on 10/16/[address] Live - Pt developed A. fib/RVR and hypotension in PACU. - Cardiology was consulted, no rate controlling meds necessary at this time. - Pt improved with IVF hydration - Pts BP more stable - decrease metoprolol to 25mg BID - coumadin (3) Status post total hip replacement, left Status: Acute Plan: - Left OSMANI performed by Dr. Jayden Live 10/16/16 - Daily PT - I recommend SNF placement - Pt is a high fall risk, especially if he returns immediately home without continued daily PT and rehabilitation - I explained that to pt and at bedside, in detail. The are NOT sure if they will opt for SNF or home with HHC>. (4) HTN (hypertension) Status: Chronic Plan: - stop HCTZ - decrease metoprolol to 25mg BID - observe Problem Qualifiers (1) HTN (hypertension): Qualified Code: I10 - Essential hypertension Ab Gould DO October 20, 2016 16:41
[2016-10-20] MEDS ORDERED: LORazepam 2 MG/ML VIAL IV PUSH PRN (16:45)
[2016-10-20] MEDS: WARFARIN SOD 2.5 MG TAB PO SCH (16:53)
[2016-10-21 00:30] VITALS: BP 104/81; PULSE 81; RESP 17; TEMP 97; O2SAT 95
[2016-10-21] MEDS: LACTATED RINGER'S 1000 ML INJ 1,000 ML IV SCH (02:06)
[2016-10-21 04:42] VITALS: BP 101/76; PULSE 74; RESP 17; TEMP 97.1; O2SAT 17
[2016-10-21] MEDS: traMADol HCL 50 MG TAB PO PRN ×2 (06:08→17:27)
--- NOTE | 2016-10-21 07:13 | PD.ORT.PN ---
Subjective Subjective Remarks POD 5 s/p left hip OSMANI -doing well. pain controlled. awake and alert. out of bed on own and ambulating with walker Objective Vitals Vital Signs Date Time Temp Pulse Resp B/P Pulse Ox O2 Delivery O2 Flow Rate FiO2 10/21/16 04:42 97.1 74 17 101/76 17 10/21/16 00:30 97.0 81 17 104/81 95 10/20/16 23:00 70 10/20/16 20:20 97.8 88 17 105/76 94 10/20/16 20:00 94 Room Air 10/20/16 20:00 77 10/20/16 16:00 96.8 92 18 102/68 96 10/20/16 12:00 97.2 77 18 101/73 95 10/20/16 07:48 96.3 73 18 114/81 93 I/O 10/20/16 10/20/16 10/20/16 10/21/16 10/21/16 10/21/16 06:59 14:59 22:59 06:59 14:59 22:59 Intake Total 240 ml 480 ml 480 ml 240 ml Output Total 4 ml Balance 240 ml 480 ml 476 ml 240 ml Intake Oral 240 ml 480 ml 480 ml 240 ml Output Urine Total 3 ml Stool Total 1 ml # Voids 4 2 3 # Bowel Movements 0 0 4 0 Result Diagram: 10/17/16 0603 10/17/16 0603 Imaging Last 24 hours Impressions Hip and Pelvis X-Ray 10/16/16 0938 Signed Impressions: Service Date/Time: October 10:29 - CONCLUSION: Expected radiographic appearance after bipolar left hip arthroplasty. Jovani Reilly MD Objective Remarks LLE: dressings clean and dry. intact. NVI. patient oriented to place and time. less confusion Assessment & Plan Assessment and Plan 1) Left Anterior OSMANI - POD 5 -WBAT -gait training with PT -DAILY dressing change -CM for HHC - Ultram 50mg 1PO Q4H -Medical management for EtOH withdrawal Will plan on discharge when patient is alert and oriented -f/u with Calos or MICHELLE in 2 weeks -assuming doing well with therapy, will likely plan for home with [facility] tomorrow Sachin Packer October 21, 2016 07:13
[2016-10-21 08:00] VITALS: BP 112/71; PULSE 79; RESP 18; TEMP 96.8; O2SAT 96
[2016-10-21] MEDS ORDERED: METOPROLOL TARTRATE 25 MG TAB PO SCH (09:00)
[2016-10-21] MEDS: SODIUM CHLORIDE 0.9% FLUSH 5 ML FLUSH IVF SCH (09:00)
[2016-10-21] MEDS: DOCUSATE SODIUM 100 MG CAP PO SCH (09:00)
[2016-10-21] MEDS: THIAMINE HCL 100 MG TAB PO SCH (09:54)
[2016-10-21] MEDS: TAMSULOSIN HCL 0.4 MG CAP PO SCH (09:54)
[2016-10-21] MEDS: MULTIVITAMIN TAB PO SCH (09:54)
[2016-10-21] MEDS: FOLIC ACID 1 MG TAB PO SCH (09:54)
[2016-10-21] MEDS: HYDROCHLOROTHIAZIDE 25 MG TAB PO SCH (09:54)
[2016-10-21] MEDS: PANTOPRAZOLE SOD 20 MG DELAYED RELEASE TAB PO SCH (09:54)
[2016-10-21] MEDS: LACTOBACILLUS ACIDOPHILUS TAB PO SCH (09:55)
[2016-10-21] MEDS: ASCORBIC ACID 500 MG TAB PO SCH (09:55)
[2016-10-21 12:00] VITALS: BP 107/81; PULSE 79; RESP 18; TEMP 96.7; O2SAT 95
--- NOTE | 2016-10-21 15:49 | HHI.FF ---
Face to Face Verification Diagnosis: (1) Atrial fibrillation with RVR (2) HTN (hypertension) (3) Hip arthritis (4) Status post total hip replacement, left Home Health Nursing Order: Medical education Signs/symptoms of disease process Medication education-adverse effect Wound care and dressing changes Nursing assessment with vital signs Instructions: lovenox 40mg subQ daily daily INR stop INR and lovenox once INR is above 2, then INR every thursday and send INR results to pt's PCP Dr. Graham Altamirano I have seen patient Austin Farfan on 10/21/16. My clinical findings support the need for the requested home health care services because: Ltd mobility - disease progression Deconditioned w/ increased weakness Med compliance is questionable Limited ability to care for self Need for psychosocial assistance Injectable med education/admin I certify that my clinical findings support that this patient is homebound because: Impaired cognitive ability/safety Unsafe to leave home unassisted Need for psychosocial assistance Unable to use public transportation Ab Gould DO October 21, 2016 15:49
[2016-10-21] MEDS ORDERED: ENOX30P SQ (15:55)
[2016-10-21 16:00] VITALS: BP 114/76; PULSE 95; RESP 18; TEMP 97.4; O2SAT 97
[2016-10-21] MEDS ORDERED: ENOXAPARIN SODIUM 30 MG/0.3 ML SYRINGE SQ ONE (16:00)
[2016-10-21] MEDS ORDERED: METO25TA3 PO (16:16)
--- NOTE | 2016-10-21 16:19 | HHI.PR ---
Subjective Remarks No new complaints. Pt was able to ambulate with PT. Objective Vitals Vital Signs Date Time Temp Pulse Resp B/P Pulse Ox O2 Delivery O2 Flow Rate FiO2 10/21/16 12:00 96.7 79 18 107/81 95 10/21/16 08:00 96.8 79 18 112/71 96 10/21/16 04:42 97.1 74 17 101/76 17 10/21/16 00:30 97.0 81 17 104/81 95 10/20/16 23:00 70 10/20/16 20:20 97.8 88 17 105/76 94 10/20/16 20:00 94 Room Air 10/20/16 20:00 77 10/20/16 10/20/16 10/21/16 15:00 23:00 07:00 Intake Total 480 ml 480 ml 240 ml Output Total 1 ml 3 ml Balance 479 ml 477 ml 240 ml Intake Oral 480 ml 480 ml 240 ml Output Urine Total 3 ml Stool Total 1 ml # Voids 2 3 # Bowel Movements 0 4 0 Result Diagram: 10/17/16 0603 10/17/16 0603 Imaging Last Impressions Hip and Pelvis X-Ray 10/16/16 0938 Signed Impressions: Service Date/Time: October 10:29 - CONCLUSION: Expected radiographic appearance after bipolar left hip arthroplasty. Jovani Reilly MD Hip X-Ray 10/16/16 0000 Signed Impressions: Service Date/Time: October 08:51 - CONCLUSION: Good placement of a bipolar hip prosthesis on the left. Jovani Anguiano MD Objective Remarks GENERAL: This is a well-nourished, well-developed patient, in no apparent distress. CARDIOVASCULAR: Regular rate and rhythm without murmurs, gallops, or rubs. RESPIRATORY: Clear to auscultation. Breath sounds equal bilaterally. No wheezes , rales, or rhonchi. GASTROINTESTINAL: Abdomen soft, non-tender, nondistended. Normal active bowel sounds MUSCULOSKELETAL: Extremities without clubbing, cyanosis, or edema. NEURO: Alert & Oriented x3. Moves all ext x4 A/P Problem List: (1) ETOH abuse Status: Acute Plan: - discharge held on 10/19/16 d/t etoh withdrawal - mentation now at baseline - discharge to home - pt already has prn home xanax, may use for agitation but NOT to mix with etoh - f/u with PCP in 1 week - f/u with [facility] in 1-2 weeks (2) Atrial fibrillation with RVR Status: Acute Plan: - Pt with Mary. fib admitted for Left OSMANI performed on 10/16/[address] Live - Pt developed A. fib/RVR and hypotension in PACU. - Pt improved with IVF hydration - Pts BP more stable - decrease metoprolol to 12.5mg BID - with parameters - coumadin with lovenox bridge (3) Status post total hip replacement, left Status: Acute Plan: - Left OSMANI performed by Dr. Jayden Live 10/16/16 - Daily PT - I recommend SNF placement - pt & refuse SNF - I have arranged for [facility], in part to assist with reestablishing pt with coumadin and lovenox bridge daily INR until INR above 2 (4) HTN (hypertension) Status: Chronic Plan: - stop HCTZ - decrease metoprolol to 25mg BID, with parameters - pt may need to increase BP medication once outpt back to prior medications and dosing - pt to keep home BP log and f/u with PCP in 1 week Problem Qualifiers (1) HTN (hypertension): Qualified Code: I10 - Essential hypertension Ab Gould DO October 21, 2016 16:19
[2016-10-21 16:50] LABS: INTERNATIONAL NORMALIZED RATIO 1.1 RATIO; PROTHROMBIN TIME - PATIENT 12.6 SEC (9.8-11.6)
[2016-10-21] MEDS: WARFARIN SOD 5 MG TAB PO SCH (17:16)
--- NOTE | 2016-11-07 11:08 | HHI.DS ---
Discharge Summary Admission Date October 16, 2016 at 05:07 Discharge Date: October 21, 2016 Admitting Diagnosis Osteoarthritis left hip Diagnosis: (1) Hip arthritis Diagnosis: Principal (2) Status post total hip replacement, left Diagnosis: Principal Procedures Left total hip arthroplasty with anterior approach PE at Discharge LLE: dressings clean and dry. intact. NVI. patient oriented to place and time. less confusion Hospital Course Patient admitted from outpatient basis for elective total hip arthroplasty for left hip. He tolerated the procedure well. He was admitted to [address] [place] [address]. He was out of bed postop day 1. He was noticeably confused on postoperative day 2. Patient started developing symptoms of alcohol withdrawal. Patient improved on postop day 4 and was fit for discharge by postoperative day 5. He was out of bed with therapy. His pain was well-controlled using stable. He will be discharged home with home health care follow-up in the office in [address] Live or his PA Pt Condition on Discharge: Fair Discharge Disposition: Disch w/ Home Health Serv Discharge Instructions Diet Instructions: Heart Healthy Diet Activities You Can Perform: Weight Bearing as Eliezer Additional Activity Instruc.: activity level per Orthopedic recommendations Follow up Referrals: Cardiology - [address] Leroy Chaudhari Orthopedics - 2 Weeks @ [facility] with Jayden Live MD PCP Follow-up - [address] Graham Altamirano Psychiatry Adult with [facility]/ with [facility] New Medications: Enoxaparin Inj (Lovenox Inj) 30 Mg/0.3 Ml Syr 30 MG SQ DAILY Blood Clot Prevention #5 Ref 0 SYRINGE Metoprolol Tartrate (Metoprolol Tartrate) 25 Mg Tab 12.5 MG PO BID afib #60 Ref 0 TAB Tramadol (Ultram) 50 Mg Tab 50 MG PO Q4H PRN PAIN #60 Ref 0 TAB Continued Medications: Alprazolam (Alprazolam) 0.5 Mg Tab 0.5 MG PO BID PRN ANXIETY Ref 0 TAB Amlodipine (Amlodipine) 5 Mg Tab 5 MG PO HS Blood Pressure Management #30 Ref 0 TAB Multiple Vitamin (Multiple Vitamin) 1 Tab 1 TAB PO DAILY Nutritional Supplement Ref 0 TAB Omeprazole (Omeprazole) 20 Mg Tab 20 MG PO DAILY #30 Ref 0 TAB Tamsulosin (Tamsulosin) 0.4 Mg Cap 0.4 MG PO DAILY Manage Prostate Problems #30 Ref 0 CAP Warfarin (Warfarin) 5 Mg Tab 5 MG PO tu,we,th,sa,maddox Blood Clot Prevention #30 Ref 0 TAB Warfarin (Warfarin) 2.5 Mg Tab 2.5 MG PO mo,fr Blood Clot Prevention #30 Ref 0 TAB Discontinued Medications: Aloe Vera Liq (Aloe Vera Juice Liq) 99.8% Liqd 2 OZ PO DAILY Ascorbic Acid (Vitamin C) 500 Mg Cap 500 MG PO DAILY Nutritional Supplement Ref 0 CAP Hydrochlorothiazide (Hydrochlorothiazide) 25 Mg Tab 25 MG PO DAILY #30 Ref 0 TAB Lactobacillus Acidophilus (Probiotic) 1 Cap Cap 1 CAP PO DAILY Nutritional Supplement #90 Ref 0 CAP Losartan (Losartan) 50 Mg Tab 50 MG PO DAILY Blood Pressure Management #30 Ref 0 TAB Jackson-3 Fatty Acids (Epa 1000 mg) 1 Cap Cap 1 CAP PO DAILY Zolpidem (Zolpidem) 10 Mg Tab 10 MG PO HS PRN INSOMNIA Ref 0 TAB Sachin Packer November 07, 2016 11:08
== END 2016-10-21 17:38 | disposition home health service (06) | DRG 470 ==
LOC: HSDI 10-16 05:07 → N06A 10-16 15:06
PROVIDERS: ADMIT Orthopaedic Surgery Orthopaedic Trauma; ATTEND Orthopaedic Surgery Orthopaedic Trauma
PROC: 0SRB02A Replacement of Left Hip Joint with Metal on Polyethylene Synthetic Substitute, Uncemented, Open Approach (ICD-10-PCS; principal; 2016-10-16 07:12)
DX: M16.12 Unilateral primary osteoarthritis, left hip (principal); I95.9 Hypotension, unspecified; F10.231 Alcohol dependence with withdrawal delirium; I48.2 Chronic atrial fibrillation; M25.752 Osteophyte, left hip; K21.9 Gastro-esophageal reflux disease without esophagitis; I10 Essential (primary) hypertension; N40.0 Benign prostatic hyperplasia without lower urinary tract symptoms; E78.5 Hyperlipidemia, unspecified; F41.9 Anxiety disorder, unspecified; Y90.9 Presence of alcohol in blood, level not specified; Z78.1 Physical restraint status; Z79.01 Long term (current) use of anticoagulants; Z85.820 Personal history of malignant melanoma of skin; Z85.828 Personal history of other malignant neoplasm of skin; Z87.891 Personal history of nicotine dependence; Z88.5 Allergy status to narcotic agent; Z96.653 Presence of artificial knee joint, bilateral
CPT/HCPCS: 36415; 73501; 73502; 76000; 80048; 85014; 85018; 85610; 86850; 86900; 86901; 93005; C1776; J0131; J0690; J1100; J1170; J1580; J1650; J1885; J2060; J2250; J2270; J2370; J2405; J2710; J3010; J3370; J7050; J7120

== ENCOUNTER 2017-02-02 10:48 | Emergency (ER) | payer MEDICARE ==
[~2017-02-02] VITALS: Ht 182.9 cm; Wt 107.0 kg
[~2017-02-02 10:48] MED LIST changes: -ALOELIQ9 PO; +ENOX30P SQ; -EPA1000C PO; -HYDR25TA5 PO; -LACTCAP8 PO; -LOSA50TA PO; +METO25TA3 PO; +TAMS0.4C4 PO; +ULTR50TA5 PO; +WARF-18 PO; +WARF-23 PO; -ZOLP10TA3 PO
[2017-02-02 10:49] VITALS: BP 118/80; PULSE 77; RESP 20; TEMP 97.7; O2SAT 96
[2017-02-02] MEDS ORDERED: POTA4.25 PO (12:42)
[2017-02-02] MEDS ORDERED: ONDA1TAB16 (12:42)
--- NOTE | 2017-02-02 12:42 | PD ---
HPI Chief Complaint: Fall Time Seen by Provider: 12:25 Travel History International Travel<30 days: No Contact w/Intl Traveler<30days: No Traveled to known affect area: No History of Present Illness HPI WHILE STAYING AT A RESORT IN [place], HE SLIPPED AND FELL ([facility] FALL, DARK ROOM), AND FELL BACKWARDS ON THURSDAY, MILD ENRIQUEZ AND LOW BACK PAIN SINCE, 10/22 FOR BOTH, NO PHOTOPHOBIA, NO VOMITING. NO AGGRAVATING/ALLEVIATING FACTORS AT THIS TIME. ALL:CODEINE/HYDROCODONE PMHX: AFIB ON COUMADIN, HTN PSHX: [facility] PFSH Past Medical History Hx Anticoagulant Therapy: Yes (WARFARIN) Arthritis: Yes Anxiety: Yes Cancer: Yes (MELANOMA, BCC, Lip/leg/arm) Cardiovascular Problems: Yes (AFIB) High Cholesterol: Yes Diabetes: No Diminished Hearing: No Endocrine: No Gastrointestinal Disorders: Yes (EXCESSIVE "BAD" BACTERIA , REFLUX) GERD: Yes Genitourinary: Yes (enlarged prostate) Hepatitis: No Hiatal Hernia: No Hypertension: Yes Immune Disorder: No Kidney Stones: Yes Musculoskeletal: Yes Neurologic: No Psychiatric: Yes (ANXIETY) Reproductive: No Respiratory: No Thyroid Disease: No Past Surgical History Abdominal Surgery: No AICD: No Cardiac Surgery: No Ear Surgery: No Endocrine Surgery: No Eye Surgery: No Genitourinary Surgery: Yes (ESWL) Gynecologic Surgery: No Joint Replacement: Yes (BILAT KNEES, L AND R TOTAL HIP) Oral Surgery: No Pacemaker: No Thoracic Surgery: No Tonsillectomy: Yes Other Surgery: Yes (SKIN CA / ,MELANOMA REMOVED) Social History Alcohol Use: Yes (2-3 /DAY) Tobacco Use: Yes (CIGARS) Substance Use: No Allergies-Medications (Allergen,Severity, Reaction): Coded Allergies: codeine (Unverified Allergy, Severe, SHORTNESS OF BREATHE, 02/02/17) and itching hydrocodone (Unverified Allergy, Severe, Itching, 02/02/17) Reported Meds & Prescriptions Reported Meds & Active Scripts Active Metoprolol Tartrate 25 Mg Tab 12.5 Mg PO BID Reported Ondansetron (Ondansetron HCl) 4 Mg Tab Potassium Citrate ER 15 Meq Tab 5 Meq PO DAILY Warfarin 2.5 Mg Tab 2.5 Mg PO , Warfarin 5 Mg Tab 5 Mg PO ,,,SA,EASTMAN Tamsulosin (Tamsulosin HCl) 0.4 Mg Cap 0.4 Mg PO DAILY Amlodipine (Amlodipine Besylate) 5 Mg Tab 5 Mg PO HS Alprazolam 0.5 Mg Tab 0.5 Mg PO BID PRN Multiple Vitamin 1 Tab 1 Tab PO DAILY Omeprazole 20 Mg Tab 20 Mg PO DAILY Review of Systems Except as stated in HPI: all other systems reviewed are Neg HENT: Positive: Headaches (MILD ENRIQUEZ S/P BHT FROM FALL) Musculoskeletal: Positive: Pain (LOW BACK PAIN) Physical Exam Narrative GENERAL: SKIN: Warm and dry.....POSTERIOR SCALP HEMATOMA ABOUT 2CM IN SIZE, NO ACTIVE LACERATION OR BLEEDING. HEAD: Atraumatic. Normocephalic. EYES: Pupils equal and round. No scleral icterus. No injection or drainage. ENT: No nasal bleeding or discharge. Mucous membranes pink and moist. NO HEMOTYMPANUM NECK: Trachea midline. No JVD. CARDIOVASCULAR: Regular rate and rhythm. RESPIRATORY: No accessory muscle use. Clear to auscultation. Breath sounds equal bilaterally. GASTROINTESTINAL: Abdomen soft, non-tender, nondistended. MUSCULOSKELETAL: Extremities without clubbing, cyanosis, or edema. No obvious deformities. NEUROLOGICAL: Awake and alert. No obvious cranial nerve deficits. Motor grossly within normal limits. Five out of 5 muscle strength in the arms and legs. Normal speech. PSYCHIATRIC: Appropriate mood and affect; insight and judgment normal. Data Data Last Documented VS Vital Signs Date Time Temp Pulse Resp B/P (MAP) Pulse Ox O2 Delivery O2 Flow Rate FiO2 02/02/17 12:25 16 02/02/17 10:49 97.7 77 118/80 (93) 96 Room Air Orders Orders Ct Brain W/O Iv Contrast(Rout) (02/02/17 12:02) Spine, Lumbar Comp W/Obliq (02/02/17 ) MDM Medical Decision Making Medical Screen Exam Complete: Yes Emergency Medical Condition: Yes Medical Record Reviewed: Yes Differential Diagnosis ICH V SKULL FX V SCALP CONTUSION V LUMBAR STRAIN V LUMBAR FX/DISLOCATION Narrative Course DISCUSSED IN DETAIL WITH PATIENT AND , CT NEG FOR ICH, HOWEVER DID SHOW ATROPHY WHICH WAS D/W PATIENT,....XRAY NEG FOR FX/DISLOCATION/ SUBLUXATION Diagnosis Primary Impression: SCALP CONTUSION Additional Impression: Lumbar strain Qualified Codes: S39.012A - Strain of muscle, fascia and tendon of lower back , initial encounter Patient Instructions: General Instructions, Muscle Strain (ED), Scalp Contusion in Adults (ED) Scripts Tramadol (Ultram) 50 Mg Tab 50 MG PO Q4H Y for PAIN, #28 TAB 0 Refills Prov: Ajay Terrell MD 02/02/17 Cyclobenzaprine (Flexeril) 10 Mg Tab 10 MG PO TID for Muscle Spasm, #21 TAB 0 Refills Prov: Ajay Terrell MD 02/02/17 Disposition: 01 DISCHARGE HOME Condition: Stable Ajay Terrell MD Feb 02, 2017 12:41
--- NOTE | 2017-02-02 13:12 | RADRPT ---
EXAM DATE/TIME: 02/02/2017 12:42 [facility] COMPARISON: No previous studies available for comparison. INDICATIONS : Patient fell and hit head RADIATION DOSE: 56.35 CTDIvol (mGy) MEDICAL HISTORY : Hypertension. SURGICAL HISTORY : None. ENCOUNTER: Initial ACUITY: 3 days PAIN SCALE: 3/10 LOCATION: occipital TECHNIQUE: Multiple contiguous axial images were obtained of the head. Using automated exposure control and adj ustment of the mA and/or kV according to patient size, radiation dose was kept as low as reasonably a chievable to obtain optimal diagnostic quality images. DICOM format image data is available electro nically for review and comparison. FINDINGS: CEREBRUM: Atrophy. Periventricular low attenuation change involving both cerebral hemispheres. The ventricles a re normal for age. No evidence of midline shift, mass lesion, hemorrhage or acute infarction. No ex tra-axial fluid collections are seen. POSTERIOR FOSSA: The cerebellum and brainstem are intact. The 4th ventricle is midline. The cerebellopontine angle i s unremarkable. EXTRACRANIAL: The visualized portion of the orbits is intact. SKULL: The calvaria is intact. No evidence of skull fracture. CONCLUSION: 1. No acute intracranial abnormality. 2. Atrophy and extensive chronic small vessel ischemic change. Geovani Burks Jr., MD on February 02, 2017 at 12:53 Board Certified Radiologist. This report was verified electronically.
--- NOTE | 2017-02-02 14:02 | RADRPT ---
EXAM DATE/TIME: 02/02/2017 13:45 [facility] COMPARISON: No previous studies available for comparison. INDICATIONS : Fall two days ago and has lower back pain. MEDICAL HISTORY : None. SURGICAL HISTORY : Bilateral hip replacement. ENCOUNTER: Initial ACUITY: 2 days PAIN SCORE: 5/10 LOCATION: Bilateral L-spine. FINDINGS: There are five non-rib bearing vertebral bodies. Grade 1 spondylolisthesis L5 on S1. Degenerative di sc disease throughout the lumbar spine but greatest at L5-S1. No change throughout the left. Question able spondylolisis. No fracture is identified. CONCLUSION: 1. Grade 1 spondylolisthesis of L5 on S1 with questionable spondylolysis. 2. Degenerative changes greatest at L5-S1. 3. No acute compression fracture. Jaylen Monroe MD on February 02, 2017 at 13:56 Board Certified Radiologist. This report was verified electronically.
[2017-02-02] MEDS ORDERED: CYCL1TAB29 PO (14:14)
[2017-02-02] MEDS ORDERED: ULTR50TA5 PO (14:14)
== END 2017-02-02 14:37 | disposition home or self-care (01) ==
LOC: NEPD 10:48
DX: S00.03XA Contusion of scalp, initial encounter (principal); S39.012A Strain of muscle, fascia and tendon of lower back, initial encounter; W01.0XXA Fall on same level from slipping, tripping and stumbling without subsequent striking against object, initial encounter
CPT/HCPCS: 70450; 72110; 99284

== ENCOUNTER → 2017-03-09 | Day surgery (SDC) | payer MEDICARE ==
[~2017-03-09] MED LIST changes: +CYCL1TAB29 PO; -ENOX30P SQ; +LACTATED RINGER'S 1000 ML INJ 1,000 ML ONE; +ONDA1TAB16; +POTA4.25 PO; +PROPOFOL 500 MG/50 ML BTL IV ONE
--- NOTE | 2017-03-09 09:18 | GIPROC ---
[facility] [address] [facility], [address] COLONOSCOPY PROCEDURE REPORT EXAM DATE: 03/09/2017 PATIENT NAME: Austin Farfan MR #: [id number] BIRTHDATE: 1945 ENDOSCOPIST: Eli Thompson MD ORDER #: [id number] SWIMMING TEACHER: STATUS: outpatient INDICATIONS: The patient is a 71 yr old male here for a colonoscopy due to high risk patient with personal history of colonic polyps and diarrhea PROCEDURE PERFORMED: Colonoscopy with biopsy MEDICATIONS: None and Per Anesthesia. PREP QUALITY: good PREP TYPE:Other: ESTIMATED BLOOD LOSS: None CONSENT: The patient understands the risks and benefits of the procedure and understands that these risks include, but are not limited to: sedation, allergic reaction, infection, perforation and/or bleeding. Alternative means of evaluation and treatment include, among others: physical exam, x-rays, and/or surgical intervention. The patient elects to proceed with this endoscopic procedure. medical equipment was checked for proper function. Hand hygiene and appropriate measures for infection prevention was taken. After the risks, benefits and alternatives of the procedure were thoroughly explained, Informed consent was verified, confirmed and timeout was successfully executed by the treatment team. A digital exam revealed hemorrhoids The EC-[id number] ([id number]) endoscope was introduced through the anus and advanced to the cecum, which was identified by both the appendix and ileocecal valve. The instrument was then slowly withdrawn as the colon was fully examined. COLON FINDINGS: Diverticulosis diminutive polyp descending -cold biopsy with complete removal random biopsies from ascending and descending r/o microscopi colitis. Retroflexed views revealed internal hemorrhoids and Retroflexed views revealed small internal hemorrhoids The scope was then completely withdrawn from the patient and the procedure terminated. PROCEDURE WITHDRAWAL TIME:6minutes ADVERSE EVENTS: There were no complications. IMPRESSIONS: 1. Diverticulosis diminutive polyp descending -cold biopsy with complete removal random biopsies from ascending and descending r/o microscopi colitis 2. Retroflexed views revealed internal hemorrhoids 3. Retroflexed views revealed small internal hemorrhoids 4. Revealed hemorrhoids RECOMMENDATIONS: 1. Await biopsy results. Biopsy results will not be ready for 7-10 days. If you don't hear from us in two weeks, call our office for results. 2. Probiotics from any [facility] or health food store 3. Yearly rectal exams RECALL: Return 5 years Colonoscopy Eli Thompson MD eSigned: Eli Thompson MD 03/09/2017 9:18 AM cc: [facility] and Graham Altamirano M.D. PATIENT NAME: NaheedAustin MR#: [id number]
--- NOTE | 2017-03-09 09:25 | GIPROC ---
[facility] [address], [id number] EGD PROCEDURE REPORT EXAM DATE: 03/09/2017 PATIENT NAME: Austin Farfan MR #: [id number] BIRTHDATE: 1945 ATTENDING: Eli Thompson MD ORDER #: [id number] ACID TENDER: STATUS: outpatient INDICATIONS: The patient is a 71 yr old male here for an EGD due to history of Reich's PROCEDURE PERFORMED: EGD w/ biopsy MEDICATIONS: None and Per Anesthesia. TOPICAL ANESTHETIC: none CONSENT: The patient understands the risks and benefits of the procedure and understands that these risks include, but are not limited to: sedation, allergic reaction, infection, perforation and/or bleeding. Alternative means of evaluation and treatment include, among others: physical exam, x-rays, and/or surgical intervention. The patient elects to proceed with this endoscopic procedure. medical equipment was checked for proper function. Hand hygiene and appropriate measures for infection prevention was taken. After the risks, benefits and alternatives of the procedure were thoroughly explained, Informed consent was verified, confirmed and timeout was successfully executed by the treatment team. The patient was anesthetized with topical anesthesia and the EC-[id number] ([id number]) endoscope was introduced through the mouth and advanced to the second portion of the duodenum. Retroflexed views revealed a hiatal hernia The gastroscope was then slowly withdrawn and removed. Short segment Reich's -biopsy-NBI scope used gastrtis antrum-biopsy duodenum normal-biopsy to r/o celiac disease no varices. ADVERSE EVENTS: There were no complications. IMPRESSIONS: 1. Short segment Reich's -biopsy-NBI scope used gastrtis antrum-biopsy duodenum normal-biopsy to r/o celiac disease no varices 2. Retroflexed views revealed a hiatal hernia RECOMMENDATIONS: 1. Await biopsy results. Biopsy results will not be ready for 7-10 days. If you don't hear from us in two weeks, call our office for biopsy results. 2. Anti-reflux regimen 3. Continue PPI 4. Restart anticoagulation today pt/inr as per pcp PATIENT CONDITION: stable DISPOSITION: Home REPEAT EXAM: Return 2 years EGD Eli Thompson MD eSigned: Eli Thompson MD 03/09/2017 9:25 AM cc: Graham Altamirano M.D. PATIENT NAME: Naheed Austin Cielo MR#: [id number]
== END | disposition home or self-care (01) ==
LOC: ESDC 06:37
PROVIDERS: ATTEND Internal Medicine Gastroenterology
DX: R19.7 Diarrhea, unspecified (principal); Z86.010 Personal history of colon polyps; K57.90 Diverticulosis of intestine, part unspecified, without perforation or abscess without bleeding; D12.4 Benign neoplasm of descending colon; K64.8 Other hemorrhoids; K22.70 Barrett's esophagus without dysplasia; K44.9 Diaphragmatic hernia without obstruction or gangrene; K29.70 Gastritis, unspecified, without bleeding
CPT/HCPCS: 00740; 00810; 43239; 45380; 88305; 88312; J3010; J7120

== ENCOUNTER 2017-04-27 07:06 | Emergency (ER) | payer MEDICARE ==
[~2017-04-27] VITALS: Ht 182.9 cm; Wt 109.0 kg
[~2017-04-27 07:06] MED LIST changes: +CYCL10TA PO; -CYCL1TAB29 PO; -LACTATED RINGER'S 1000 ML INJ 1,000 ML ONE; -OMEP20TA PO; +OMEP20TA93 PO; -ONDA1TAB16; +ONDA4TAB15; -PROPOFOL 500 MG/50 ML BTL IV ONE; +TRAM50 PO; -ULTR50TA5 PO
[2017-04-27 07:09] VITALS: BP 137/98; PULSE 81; RESP 18; TEMP 97.5; O2SAT 96
[2017-04-27] MEDS ORDERED: ZOLP10TA3 PO (07:28)
[2017-04-27] MEDS ORDERED: TETANUS/DIPHTHERIA TOXOID ADULT 0.5 ML VIAL IM ONE (07:45)
--- NOTE | 2017-04-27 07:47 | PD ---
HPI Chief Complaint: Injury Time Seen by Provider: 07:35 Travel History International Travel<30 days: No Contact w/Intl Traveler<30days: No Traveled to known affect area: No History of Present Illness HPI 71-year-old male complains of left shoulder pain and burn to left fourth and fifth fingers. Patient states that he accidentally got burned on the left fourth and fifth fingers on the rotary drier feeder fluid 2 days ago. Patient states that he fell on his left shoulder. Patient denies loss of consciousness. Patient denies any headache or neck pain. Patient complains aching pain localized left shoulder. Patient denies any pain radiation. Patient states that the pain is worse with left shoulder movement. Patient states that the burning on the left fourth and fifth fingers is not painful. Patient's not up-to-date with TD booster. PFSH Past Medical History Hx Anticoagulant Therapy: Yes Arthritis: Yes Anxiety: Yes Cancer: Yes (MELANOMA, BCC, Lip/leg/arm) Cardiovascular Problems: Yes (AFIB) High Cholesterol: Yes Diabetes: No Diminished Hearing: Yes Endocrine: No Gastrointestinal Disorders: Yes GERD: Yes Genitourinary: Yes (enlarged prostate) Hepatitis: No Hiatal Hernia: No Hypertension: Yes Immune Disorder: No Insomnia: Yes Kidney Stones: Yes Musculoskeletal: Yes Neurologic: No Psychiatric: Yes (ANXIETY) Reproductive: No Respiratory: No Thyroid Disease: No Past Surgical History Abdominal Surgery: No AICD: No Cardiac Surgery: No Ear Surgery: No Endocrine Surgery: No Eye Surgery: No Genitourinary Surgery: Yes (ESWL) Gynecologic Surgery: No Joint Replacement: Yes (BILAT KNEES, L AND R TOTAL HIP) Oral Surgery: No Pacemaker: No Thoracic Surgery: No Tonsillectomy: Yes Other Surgery: Yes (SKIN CA,MELANOMA REMOVED) Social History Alcohol Use: Yes (2-3 /DAY) Tobacco Use: Yes (CIGARS) Substance Use: No Allergies-Medications (Allergen,Severity, Reaction): Coded Allergies: codeine (Unverified Allergy, Severe, SHORTNESS OF BREATHE, 04/27/17) and itching hydrocodone (Unverified Allergy, Severe, Itching, 04/27/17) Reported Meds & Prescriptions Reported Meds & Active Scripts Active Metoprolol Tartrate 25 Mg Tab 12.5 Mg PO BID Reported Zolpidem (Zolpidem Tartrate) 10 Mg Tab 10 Mg PO HS PRN Potassium Citrate ER 15 Meq Tab 5 Meq PO DAILY Warfarin 2.5 Mg Tab 7.5 Mg PO TUES Warfarin 5 Mg Tab 5 Mg PO ..EASTMAN Tamsulosin (Tamsulosin HCl) 0.4 Mg Cap 0.4 Mg PO DAILY Amlodipine (Amlodipine Besylate) 5 Mg Tab 5 Mg PO HS Alprazolam 0.5 Mg Tab 0.5 Mg PO BID PRN Multiple Vitamin 1 Tab 1 Tab PO DAILY Omeprazole 20 Mg Tab 20 Mg PO DAILY Review of Systems General / Constitutional: No: Fever Eyes: No: Visual changes HENT: No: Headaches Cardiovascular: No: Chest Pain or Discomfort Respiratory: No: Shortness of Breath Gastrointestinal: No: Abdominal Pain Genitourinary: No: Dysuria Musculoskeletal: Positive: Pain Skin: No Rash Neurologic: No: Weakness Psychiatric: No: Depression Endocrine: No: Polydipsia Hematologic/Lymphatic: No: Easy Bruising Physical Exam Narrative GENERAL: Well-nourished, well-developed patient. SKIN: Focused skin assessment warm/dry. HEAD: Normocephalic. EYES: No scleral icterus. No injection or drainage. NECK: Supple, trachea midline. No JVD or lymphadenopathy. CARDIOVASCULAR: Regular rate and rhythm without murmurs, gallops, or rubs. RESPIRATORY: Breath sounds equal bilaterally. No accessory muscle use. GASTROINTESTINAL: Abdomen soft, non-tender, nondistended. MUSCULOSKELETAL: No cyanosis, or edema. BACK: Nontender without obvious deformity. No CVA tenderness. Patient has large blister lesion on the left fourth finger proximal and distal phalange. Patient has several small blisters on the left fifth finger. Data Data Last Documented VS Vital Signs Date Time Temp Pulse Resp B/P (MAP) Pulse Ox O2 Delivery O2 Flow Rate FiO2 04/27/17 07:09 97.5 81 18 137/98 (111) 96 Room Air Orders Orders Tetanus/Diphtheria Tox Adult (Tetanus/Di (04/27/17 07:45) Wound Care (04/27/17 07:41) Shoulder, Limited(2vws) (04/27/17 07:42) Splint Or Brace Apply/Monitor (04/27/17 08:12) MDM Medical Decision Making Medical Screen Exam Complete: Yes Emergency Medical Condition: Yes Differential Diagnosis Differential diagnosis including second-degree burn, left shoulder contusion, fracture, dislocation. Narrative Course 71-year-old male with left shoulder injury and second-degree huffman left fourth and fifth fingers. TD booster given. Dressing applied to the left fourth and fifth fingers. Sling left arm. Diagnosis Primary Impression: Second degree burn of fingers Qualified Codes: T23.222A - Burn of second degree of single left finger (nail ) except thumb, initial encounter Additional Impression: Contusion of left shoulder Qualified Codes: S40.012A - Contusion of left shoulder, initial encounter Patient Instructions: General Instructions Additional Instructions: Wound care as directed. Take medication as needed for pain. Follow-up with personal physician. Return if worse. Med/Other Pt SpecificInfo: Prescription(s) given Scripts Silver Sulfadiazine Topical (Silvadene Topical) 1 % Cream 1 APPLIC TOPICAL DAILY for Wound Management, #50 GM 0 Refills Prov: Lake Cespedes MD 04/27/17 Tramadol (Tramadol) 50 Mg Tab 50 MG PO Q6H Y for PAIN, #12 TAB 0 Refills Prov: Lake Cespedes MD 04/27/17 Disposition: 01 DISCHARGE HOME Condition: Stable Lake Cespedes MD Apr 27, 2017 07:47
[2017-04-27] MEDS ORDERED: TRAM50TA PO (08:17)
[2017-04-27] MEDS ORDERED: SILV1CRE20 TOPICAL (08:17)
--- NOTE | 2017-04-27 08:24 | RADRPT ---
EXAM DATE/TIME: 04/27/2017 07:53 [facility] COMPARISON: No previous studies available for comparison. INDICATIONS : Fall, left shoulder pain. MEDICAL HISTORY : None. SURGICAL HISTORY : None. ENCOUNTER: Initial ACUITY: 1 day PAIN SCORE: 8/10 LOCATION: Left shoulder FINDINGS: Two view examination of the left shoulder demonstrates no evidence of fracture or dislocation. The g lenohumeral and acromioclavicular joints are maintained. There is subacromial spurring at the a.c. arely int degenerating subacromial space narrowing. Bony mineralization is normal. CONCLUSION: 1. No fracture or dislocation. 2. Degenerative changes at the a.c. joint with subacromial space spurring which can generate impingem ent syndrome. Geovani Burks Jr., MD on April 27, 2017 at 8:21 Board Certified Radiologist. This report was verified electronically.
== END 2017-04-27 08:27 | disposition home or self-care (01) ==
LOC: PHED 07:06
DX: T23.232A Burn of second degree of multiple left fingers (nail), not including thumb, initial encounter (principal); T31.0 Burns involving less than 10% of body surface; S40.012A Contusion of left shoulder, initial encounter; E78.00 Pure hypercholesterolemia, unspecified; I10 Essential (primary) hypertension; I48.91 Unspecified atrial fibrillation; N40.0 Benign prostatic hyperplasia without lower urinary tract symptoms; Z72.0 Tobacco use; X08.8XXA Exposure to other specified smoke, fire and flames, initial encounter; Z23 Encounter for immunization
CPT/HCPCS: 73030; 90471; 90714

== ENCOUNTER 2017-10-25 08:44 | Observation (INO) | payer MEDICARE ==
[2017-10-25] VITALS (12 sets, daily range): BP systolic 118–200; BP diastolic 74–110; PULSE 63–115; RESP 17–19; TEMP 96.9–98.6; O2SAT 94–98
[~2017-10-25 08:44] MED LIST changes: -CYCL10TA PO; -ONDA4TAB15; +SILV1CRE20 TOPICAL; -TRAM50 PO; +TRAM50TA PO; +ZOLP10TA3 PO
--- NOTE | 2017-10-25 08:59 | PD ---
HPI Chief Complaint: Chest Pain Time Seen by Provider: 08:55 Travel History International Travel<30 days: No Contact w/Intl Traveler<30days: No History of Present Illness HPI 72yo M with PMH of afib, HTN, HLD, chronic lower back pain presents to the ED with c/o midsternal chest pain that started around 10-15 minutes ago. Pt was eating a toast and started having midsternal dull pressure pain that is nonradiating. Associated with nausea, diaphoresis and sob. Denies any fever, vomiting, abdominal pain, focal weakness or numbness. Denies any history of heart attacks. Pt follows with president celebrity acquist[employer] Dr. Chaudhari for his afib. Had recent echocardiogram. Pt is former cig smoker. PFSH Past Medical History Hx Anticoagulant Therapy: Yes Arthritis: Yes Anxiety: Yes Cancer: Yes (MELANOMA, BCC, Lip/leg/arm) Cardiovascular Problems: Yes (AFIB) High Cholesterol: Yes Diabetes: No Diminished Hearing: Yes Endocrine: No Gastrointestinal Disorders: Yes GERD: Yes Genitourinary: Yes (enlarged prostate) Hepatitis: No Hiatal Hernia: No Hypertension: Yes Immune Disorder: No Insomnia: Yes Kidney Stones: Yes Musculoskeletal: Yes Neurologic: No Psychiatric: Yes (ANXIETY) Reproductive: No Respiratory: No Thyroid Disease: No Past Surgical History Abdominal Surgery: No AICD: No Cardiac Surgery: No Ear Surgery: No Endocrine Surgery: No Eye Surgery: No Genitourinary Surgery: Yes (ESWL) Gynecologic Surgery: No Joint Replacement: Yes (BILAT KNEES, L AND R TOTAL HIP) Oral Surgery: No Pacemaker: No Thoracic Surgery: No Tonsillectomy: Yes Other Surgery: Yes (SKIN CA,MELANOMA REMOVED) Social History Alcohol Use: Yes (2-3 /DAY) Tobacco Use: Yes (CIGARS) Substance Use: No Allergies-Medications (Allergen,Severity, Reaction): Coded Allergies: codeine (Unverified Allergy, Severe, SHORTNESS OF BREATHE, 04/27/17) and itching hydrocodone (Unverified Allergy, Severe, Itching, 04/27/17) Reported Meds & Prescriptions Reported Meds & Active Scripts Active Tramadol (Tramadol HCl) 50 Mg Tab 50 Mg PO Q6H PRN Metoprolol Tartrate 25 Mg Tab 12.5 Mg PO BID Reported Zolpidem (Zolpidem Tartrate) 10 Mg Tab 10 Mg PO HS PRN Potassium Citrate ER 15 Meq Tab 5 Meq PO DAILY Warfarin 2.5 Mg Tab 7.5 Mg PO TUES Warfarin 5 Mg Tab 5 Mg PO M..EASTMAN Tamsulosin (Tamsulosin HCl) 0.4 Mg Cap 0.4 Mg PO DAILY Amlodipine (Amlodipine Besylate) 5 Mg Tab 5 Mg PO HS Alprazolam 0.5 Mg Tab 0.5 Mg PO BID PRN Multiple Vitamin 1 Tab 1 Tab PO DAILY Omeprazole 20 Mg Tab 20 Mg PO DAILY Review of Systems Except as stated in HPI: all other systems reviewed are Neg Physical Exam Narrative GENERAL: 72yo M in mild distrss. SKIN: Diaphoretic. HEAD: Atraumatic. Normocephalic. EYES: Pupils equal and round. No scleral icterus. No injection or drainage. ENT: No nasal bleeding or discharge. Mucous membranes pink and moist. NECK: Trachea midline. No JVD. CARDIOVASCULAR: Regular rate and rhythm. No murmur appreciated. RESPIRATORY: No accessory muscle use. Clear to auscultation. Breath sounds equal bilaterally. GASTROINTESTINAL: Abdomen soft, non-tender, nondistended. No rebound tenderness or guarding. MUSCULOSKELETAL: No obvious deformities. No clubbing. No cyanosis. Trace bilateral lower extremity edema. NEUROLOGICAL: Awake and alert. No obvious cranial nerve deficits. Motor grossly within normal limits. Normal speech. PSYCHIATRIC: Appropriate mood and affect; insight and judgment normal. Data Data Last Documented VS Vital Signs Date Time Temp Pulse Resp B/P (MAP) Pulse Ox O2 Delivery O2 Flow Rate FiO2 10/25/17 09:16 76 118/74 (89) 10/25/17 09:15 18 96 Room Air 10/25/17 08:46 97.7 Orders Orders Basic Metabolic Panel (Bmp) (10/25/17 08:55) B-Type Natriuretic Peptide (10/25/17 08:55) Complete Blood Count With Diff (10/25/17 08:55) Magnesium (Mg) (10/25/17 08:55) Prothrombin Time / Inr (Pt) (10/25/17 08:55) Act Partial Throm Time (Ptt) (10/25/17 08:55) Troponin I (10/25/17 08:55) Lipase (10/25/17 08:55) Chest, Single Ap (10/25/17 08:55) Nitroglycerin Sl (Nitrostat Sl) (10/25/17 09:00) Admit Order (Ed Use Only) (10/25/17 10:42) Place In Observation (10/25/17 10:42) Activity Bed Rest With Brp (10/25/17 10:42) Vital Signs (Adult) Q4H (10/25/17 10:42) Cardiac Rhythm .As Directed (10/25/17 10:42) Notify Dr: Other .PRN (10/25/17 10:42) Notify DrBoby Parameters (10/25/17 10:42) Resp Oxygen Nasal Cannula (10/25/17 ) Ckmb (Isoenzyme) Profile (10/25/17 12:42) Troponin I (10/25/17 12:00) Electrocardiogram (10/25/17 12:00) ^ Obtain (10/25/17 10:42) Sodium Chloride 0.9% Flush (Ns Flush) (10/25/17 10:45) Sodium Chloride 0.9% Flush (Ns Flush) (10/25/17 21:00) Acetaminophen (Tylenol) (10/25/17 10:45) Morphine Inj (Morphine Inj) (10/25/17 10:45) Ondansetron Inj (Zofran Inj) (10/25/17 10:45) Nitroglycerin Sl (Nitrostat Sl) (10/25/17 10:45) Aspirin Chew (Aspirin Chew) (10/25/17 11:00) Cruise Agent / Telemetry CECELIA.Q8H (10/25/17 10:42) Scd Bilateral/Knee High CECELIA.BID (10/25/17 10:42) Trevon Bilateral/Knee High CECELIA.QSHIFT (10/25/17 10:42) Labs Laboratory Tests Test 10/25/17 08:55 White Blood Count 7.2 TH/MM3 Red Blood Count 4.85 MIL/MM3 Hemoglobin 15.0 GM/DL Hematocrit 45.8 % Mean Corpuscular Volume 94.5 FL Mean Corpuscular Hemoglobin 31.0 PG Mean Corpuscular Hemoglobin Concent 32.8 % Red Cell Distribution Width 14.2 % Platelet Count 153 TH/MM3 Mean Platelet Volume 7.8 FL Neutrophils (%) (Auto) 74.4 % Lymphocytes (%) (Auto) 17.7 % Monocytes (%) (Auto) 7.7 % Eosinophils (%) (Auto) 0.1 % Basophils (%) (Auto) 0.1 % Neutrophils # (Auto) 5.3 TH/MM3 Lymphocytes # (Auto) 1.3 TH/MM3 Monocytes # (Auto) 0.6 TH/MM3 Eosinophils # (Auto) 0.0 TH/MM3 Basophils # (Auto) 0.0 TH/MM3 CBC Comment DIFF FINAL Differential Comment Prothrombin Time 27.5 SEC Prothromb Time International Ratio 2.7 RATIO Activated Partial Thromboplast Time 30.5 SEC Blood Urea Nitrogen 18 MG/DL Creatinine 0.86 MG/DL Random Glucose 118 MG/DL Calcium Level 8.9 MG/DL Magnesium Level 2.3 MG/DL Sodium Level 139 MEQ/L Potassium Level 4.4 MEQ/L Chloride Level 105 MEQ/L Carbon Dioxide Level 27.8 MEQ/L Anion Gap 6 MEQ/L Estimat Glomerular Filtration Rate 87 ML/MIN Troponin I LESS THAN 0.02 NG/ML B-Type Natriuretic Peptide 366 PG/ML Lipase 132 U/L [facility] Medical Decision Making Medical Screen Exam Complete: Yes Emergency Medical Condition: Yes Interpretation(s) EKG; Afib at 72bpm. LAD. No significant ST elevation. TWI III. PVC. Differential Diagnosis ACS vs. GERD vs. pancreatitis vs. pneumonia Narrative Course 72yo M with typical chest pain just prior to arrival. Labs reviewed, no leukocytosis. H/H normal. BNP mildly elevated at 366. Troponin negative. INR therapeutic at 2.7. CXR negative. Pt given sublingual nitro and chest pain has resolved. Discussed with Dr. Price who accepted him for serial EKG and cardiac enzyme for chest pain center. Diagnosis Primary Impression: Chest pain Qualified Codes: R07.9 - Chest pain, unspecified Admitting Information Admitting Physician Requests: Jaylan DanielsuMichelle DO October 25, 2017 08:59
[2017-10-25] MEDS: NITROGLYCERIN 0.4 MG SL 25 TABS/BTL SL SCH ×3 (09:06→09:14)
[2017-10-25 09:16] LABS: AUTOMATED NEUTROPHIL # 5.3 TH/MM3 (1.8-7.7); BASOPHIL % 0.1 % (0.0-2.0); EOSINOPHIL % 0.1 % (0.0-4.0); HEMATOCRIT 45.8 % (39.0-51.0); LYMPH % 17.7 % (9.0-44.0); LYMPHOCYTE # 1.3 TH/MM3 (1.0-4.8); MEAN CELL VOLUME 94.5 FL (80.0-100.0); MEAN CORPUSCULAR HGB CONC 32.8 % (32.0-36.0); MEAN PLATELET VOLUME 7.8 FL (7.0-11.0); MONO % 7.7 % (0.0-8.0); MONOCYTE # 0.6 TH/MM3 (0-0.9); NEUT % 74.4 % (16.0-70.0); PLATELET COUNT 153 TH/MM3 (150-450); RED BLOOD COUNT 4.85 MIL/MM3 (4.50-5.90); RED CELL DISTRIBUTION WIDTH 14.2 % (11.6-17.2); WHITE BLOOD COUNT 7.2 TH/MM3 (4.0-11.0)
[2017-10-25 09:28] LABS: INTERNATIONAL NORMALIZED RATIO 2.7 RATIO; PROTHROMBIN TIME - PATIENT 27.5 SEC (9.8-11.6)
[2017-10-25 09:48] LABS: BICARBONATE 27.8 MEQ/L (21.0-32.0); CALCIUM 8.9 MG/DL (8.5-10.1); GLUCOSE,RANDOM 118 MG/DL (74-106); MAGNESIUM 2.3 MG/DL (1.5-2.5)
[2017-10-25 09:51] LABS: CREATININE 0.86 MG/DL (0.60-1.30); GLOMERULAR FILTRATION RATE 87 ML/MIN (>89)
[2017-10-25 09:55] LABS: CHLORIDE 105 MEQ/L (98-107); SODIUM (NA) 139 MEQ/L (136-145)
[2017-10-25 10:00] LABS: BLOOD UREA NITROGEN 18 MG/DL (7-18)
[2017-10-25 10:08] LABS: TROPONIN I LESS THAN 0.02 NG/ML (0.02-0.05)
--- NOTE | 2017-10-25 10:12 | RADRPT ---
EXAM DATE/TIME: 10/25/2017 09:54 [facility] COMPARISON: CHEST SINGLE AP, October 07, 2015, 16:32. INDICATIONS : Chest pain. MEDICAL HISTORY : Hypertension. Afib. SURGICAL HISTORY : None. ENCOUNTER: Initial ACUITY: 1 day PAIN SCORE: 10/10 LOCATION: Bilateral chest FINDINGS: A single view of the chest demonstrates the lungs to be symmetrically aerated without evidence of mas s, infiltrate or effusion. The cardiomediastinal contours are unremarkable. Osseous structures are intact. CONCLUSION: No acute disease. Yun Bright MD on October 25, 2017 at 10:10 Board Certified Radiologist. This report was verified electronically.
[2017-10-25] MEDS ORDERED: ONDANSETRON HCL 4 MG/2 ML VIAL IV PUSH PRN (10:45)
[2017-10-25] MEDS ORDERED: ZOLPIDEM TARTRATE 10 MG TAB PO PRN (10:45)
[2017-10-25] MEDS ORDERED: SODIUM CHLORIDE 0.9% FLUSH 10 ML FLUSH IV FLUSH PRN (10:45)
[2017-10-25] MEDS ORDERED: MORPHINE SULFATE 4 MG/ML INJ IV PUSH PRN (10:45)
[2017-10-25] MEDS ORDERED: ALPRAZolam 0.5 MG TAB PO PRN (10:45)
[2017-10-25] MEDS ORDERED: ACETAMINOPHEN 500 MG CPLT PO PRN (10:45)
[2017-10-25] MEDS ORDERED: ASPIRIN 81 MG CHEW TAB PO ONE (11:00)
[2017-10-25] MEDS ORDERED: PILL SPLITTER OTHER PRN (11:00)
--- NOTE | 2017-10-25 12:46 | HHI.HP ---
[facility] Primary Care Physician Graham Altamirano MD Admission Diagnosis Chest pain Diagnoses: (1) Chest pain Diagnosis: Principal Chief Complaint: Chest pain Travel History International Travel<30 Days: No Contact w/Intl Traveler <30 Da: No Traveled to Known Affected Are: No History of Present Illness 72-year-old male with known history of chronic atrial fibrillation, hypertension, hyperlipidemia, gastroesophageal reflux, arthritis who presented to the hospital with classic chest discomfort. Patient states that he is in normal state of health until this morning when he woke up and he noticed a 10/ 10 chest pain located in the middle part of his chest without any radiation to his neck, back, shoulder, arm. He did have associated diaphoresis. He denied any shortness of breath, dyspnea, lightheadedness, dizziness. The patient came to the emergency department within 30 minutes and was given 2 nitroglycerin with complete resolution of his discomfort. Patient does go to Dr. Chaudhari cardiology for his chronic atrial fibrillation. He states that he had an echocardiogram done up couple months ago. However he does not recall having a stress test performed. Due to the patient's classic presentation and negative troponin at this time. It was recommended by the ER physician that the patient be observed in the chest pain center. 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 Chaudhari who concurred that the evaluation would be appropriate. Currently the patient is asymptomatic. He did have caffeine this morning so unable to perform any testing today. Review of Systems Constitutional: COMPLAINS OF: Diaphoretic episodes Cardiovascular: COMPLAINS OF: Chest pain Except as stated in HPI: all other systems reviewed are Neg Past Family Social History Past Medical History Hypertension Hyperlipidemia Chronic atrial fibrillation Gastroesophageal reflux History of renal lithiasis Osteoarthritis Past Surgical History Tonsillectomy Bilateral hip surgery Bilateral knee replacement History of melanoma removed from his left shoulder Reported Medications Reported Meds & Active Scripts Active Tramadol (Tramadol HCl) 50 Mg Tab 50 Mg PO Q6H PRN Metoprolol Tartrate 25 Mg Tab 12.5 Mg PO BID Reported Zolpidem (Zolpidem Tartrate) 10 Mg Tab 10 Mg PO HS PRN Potassium Citrate ER 15 Meq Tab 5 Meq PO DAILY Warfarin 2.5 Mg Tab 7.5 Mg PO TUES Warfarin 5 Mg Tab 5 Mg PO M..EASTMAN Tamsulosin (Tamsulosin HCl) 0.4 Mg Cap 0.4 Mg PO DAILY Amlodipine (Amlodipine Besylate) 5 Mg Tab 5 Mg PO HS Alprazolam 0.5 Mg Tab 0.5 Mg PO BID PRN Multiple Vitamin 1 Tab 1 Tab PO DAILY Omeprazole 20 Mg Tab 20 Mg PO DAILY Allergies: Coded Allergies: codeine (Unverified Allergy, Severe, SHORTNESS OF BREATHE, 04/27/17) and itching hydrocodone (Unverified Allergy, Severe, Itching, 04/27/17) Family History Reviewed is significant for heart disease. Patient states that his brother had massive heart attack and had cardiac catheterization with stenting Social History Patient states that he does smoke an occasional cigar. He used to smoke cigarettes but quit over 35 years ago. Does drink alcohol more days and he does not. States that he drinks a couple drinks daily. Denies any illicit drug Physical Exam Vital Signs Vital Signs Date Time Temp Pulse Resp B/P (MAP) Pulse Ox O2 Delivery O2 Flow Rate FiO2 10/25/17 11:49 96.9 63 18 146/90 (108) 94 10/25/17 11:33 73 17 143/100 (114) 95 10/25/17 10:48 70 17 129/88 (102) 96 Room Air 10/25/17 09:16 76 118/74 (89) 10/25/17 09:15 79 18 96 Room Air 10/25/17 09:11 79 137/94 (108) 10/25/17 08:46 97.7 66 18 182/110 (134) 96 Physical Exam GENERAL: Well-developed, well-nourished, in no acute distress. alert and orientated HEENT: Head is normocephalic without any lesions or masses noted. Facial features are symmetric. Eyes: Pupils equal round reactive to light. Extraocular muscles are intact. Conjunctivae were clear. Oropharyngeal: Pharynx without any erythema edema. Tongue is midline without deviation. Buccal mucosa is moist without any masses or lesions NECK: Supple without any masses. Trachea midline no deviation. No JVD, no bruits are appreciated CARDIAC: Regular rhythm, regular rate. S1/S2 are heard. No murmurs gallops or rubs. LUNGS: Clear to auscultation bilaterally. No wheeze, rhonchi or rales. No use of accessory muscles on inspiration or expiration. ABDOMEN: Soft, nontender. Nondistended. Bowel sounds heard in all 4 quadrants. No organomegaly or masses. Negative rebound, negative guarding EXTREMITIES: No edema, pulses are equal bilaterally. No cyanosis or clubbing NEUROLOGY: Mood and affect appear appropriate. Cranial nerves II through XII grossly intact. Muscle strength 5/5 in upper and lower extremities bilaterally. Deep tendon reflexes are 2+ in upper and lower extremities bilaterally. Laboratory Laboratory Tests Test 10/25/17 08:55 10/25/17 12:06 White Blood Count 7.2 Red Blood Count 4.85 Hemoglobin 15.0 Hematocrit 45.8 Mean Corpuscular Volume 94.5 Mean Corpuscular Hemoglobin 31.0 Mean Corpuscular Hemoglobin Concent 32.8 Red Cell Distribution Width 14.2 Platelet Count 153 Mean Platelet Volume 7.8 Neutrophils (%) (Auto) 74.4 Lymphocytes (%) (Auto) 17.7 Monocytes (%) (Auto) 7.7 Eosinophils (%) (Auto) 0.1 Basophils (%) (Auto) 0.1 Neutrophils # (Auto) 5.3 Lymphocytes # (Auto) 1.3 Monocytes # (Auto) 0.6 Eosinophils # (Auto) 0.0 Basophils # (Auto) 0.0 CBC Comment DIFF FINAL Differential Comment Prothrombin Time 27.5 Prothromb Time International Ratio 2.7 Activated Partial Thromboplast Time 30.5 Blood Urea Nitrogen 18 Creatinine 0.86 Random Glucose 118 Calcium Level 8.9 Magnesium Level 2.3 Sodium Level 139 Potassium Level 4.4 Chloride Level 105 Carbon Dioxide Level 27.8 Anion Gap 6 Estimat Glomerular Filtration Rate 87 Troponin I LESS THAN 0.02 B-Type Natriuretic Peptide 366 Lipase 132 Result Diagram: 10/25/1785410/25/17854 Imaging Last Impressions Chest X-Ray 10/25/17854 Signed Impressions: Service Date/Time: Wednesday, October 25, 2017 09:54 - CONCLUSION: No acute disease. MD Bunny Myrick VTE Risk Assessment Caprini VTE Risk Assessment: Mod/High Risk (score >= 2) Caprini Risk Assessment Model Point Value = 1 Point Value = 2 Point Value = 3 Point Value = 5 Age 41-60 Minor surgery BMI > 25 kg/m2 Swollen legs Varicose veins or History of unexplained or recurrent spontaneous Oral contraceptives or hormone replacement Sepsis (< 1 month) Serious lung disease, including pneumonia (< 1 month) Abnormal pulmonary function Acute myocardial infarction Congestive heart failure (< 1 month) History of inflammatory bowel disease Medical patient at bed rest Age 61-74 Arthroscopic surgery Major open surgery (> 45 min) Laparoscopic surgery (> 45 min) Malignancy Confined to bed (> 72 hours) Immobilizing plaster cast Central venous access Age >= 75 History of VTE Family history of VTE Factor V Leiden Prothrombin [id number] Lupus anticoagulant Anticardiolipin antibodies Elevated serum homocysteine Heparin-induced thrombocytopenia Other congenital or acquired thrombophilia Stroke (< 1 month) Elective arthroplasty Hip, pelvis, or leg fracture Acute spinal cord injury (< 1 month) Prophylaxis Regimen Total Risk Factor Score Risk Level Prophylaxis Regimen 0-1 Low Early ambulation 2 Moderate Order ONE of the following: *Sequential Compression Device (SCD) *Heparin 5000 units SQ BID 3-4 Higher Order ONE of the following medications: *Heparin 5000 units SQ TID *Enoxaparin/Lovenox 40 mg SQ daily (WT < 150 kg, CrCl > 30 mL/min) *Enoxaparin/Lovenox 30 mg SQ daily (WT < 150 kg, CrCl > 10-29 mL/min) *Enoxaparin/Lovenox 30 mg SQ BID (WT < 150 kg, CrCl > 30 mL/min) AND/OR *Sequential Compression Device (SCD) 5 or more Highest Order ONE of the following medications: *Heparin 5000 units SQ TID (Preferred with Epidurals) *Enoxaparin/Lovenox 40 mg SQ daily (WT < 150 kg, CrCl > 30 mL/min) *Enoxaparin/Lovenox 30 mg SQ daily (WT < 150 kg, CrCl > 10-29 mL/min) *Enoxaparin/Lovenox 30 mg SQ BID (WT < 150 kg, CrCl > 30 mL/min) AND *Sequential Compression Device (SCD) Assessment and Plan Assessment and Plan Chest pain, atypical -Patient does have increased risk factors to include age, history of tobacco use , hypertension, hyperlipidemia, family history of heart disease -We will continue to rule the patient out for acute coronary event with serial cardiac enzymes, serial EKGs -We will pursue myocardial perfusion study in the morning if patient is ruled out for acute coronary event -Continue aspirin, nitroglycerin, morphine for pain control -Continue monitor telemetry Chronic atrial fibrillation, hyperlipidemia -Continue home medications DVT prevention -Sequential compression devices -Patient currently on Coumadin with INR 2.7 Problem Qualifiers (1) Chest pain: Qualified Codes: R07.9 - Chest pain, unspecified Jordan Cooper October 25, 2017 12:46
[2017-10-25 12:54] LABS: TROPONIN I LESS THAN 0.02 NG/ML (0.02-0.05)
[2017-10-25] MEDS: NITROGLYCERIN 0.4 MG SL 25 TABS/BTL SL PRN ×2 (13:40→13:52)
[2017-10-25] MEDS: NITROGLYCERIN 2% OINT 1 GM PACKET TOPICAL SCH ×2 (14:22→18:51)
[2017-10-25 14:46] LABS: TROPONIN I LESS THAN 0.02 NG/ML (0.02-0.05)
--- NOTE | 2017-10-25 17:04 | EKG ---
Date Performed: 10/25/2017 Time Performed: 08:46:52 PTAGE: 72 years EKG: ATRIAL FIBRILLATION WITH ABERRANT CONDUCTION OR VENTRICULAR PREMATURE COMPLEXES BORDERLINE LEFT AXIS DEVIATION ABNORMAL RHYTHM ECG PREVIOUS TRACING : 10/16/2016 06.26 Since the previous tracing, no significant change noted DOCTOR: London Gamino Interpretating Date/Time 10/25/2017 17:02:13
--- NOTE | 2017-10-25 17:39 | EKG ---
Date Performed: 10/25/2017 Time Performed: 12:10:55 PTAGE: 72 years EKG: ATRIAL FIBRILLATION BORDERLINE LEFT AXIS DEVIATION ABNORMAL RHYTHM ECG PREVIOUS TRACING : 10/25/2017 08.46 Since the previous tracing, no significant change noted DOCTOR: London Gamino Interpretating Date/Time 10/25/2017 17:37:58
[2017-10-25 17:57] LABS: TROPONIN I LESS THAN 0.02 NG/ML (0.02-0.05)
[2017-10-25] MEDS ORDERED: amLODIPine BESYLATE 5 MG TAB PO SCH (21:00)
[2017-10-25] MEDS: METOPROLOL TARTRATE 25 MG TAB PO SCH (21:21)
[2017-10-25] MEDS: SODIUM CHLORIDE 0.9% FLUSH 10 ML FLUSH IV FLUSH SCH (21:22)
[2017-10-26] VITALS: BP 151/114; PULSE 129; RESP 20; TEMP 98; O2SAT 94
[2017-10-26] MEDS: NITROGLYCERIN 2% OINT 1 GM PACKET TOPICAL SCH ×3 (00:44→12:00)
[2017-10-26] MEDS ORDERED: ONDANSETRON ODT 4 MG TAB PO PRN (01:00)
[2017-10-26 04:00] VITALS: BP 137/89; PULSE 108; RESP 19; TEMP 98.2; O2SAT 93
[2017-10-26 08:00] VITALS: BP 142/98; PULSE 78; PULSE 79; RESP 19; TEMP 96.3; O2SAT 92; O2SAT 95
--- NOTE | 2017-10-26 08:34 | HHI.PR ---
Subjective Remarks Patient seen and examined today for follow-up on chest pain. Patient states that he has not had any recurrent chest pain since the application of the Nitropaste. Both patient and appear to be anxious about his chest discomfort, labile blood pressure, labile heart rate. Counseled patient and reassured them of the laboratory studies, EKGs, did some counseling on atrial fibrillation with heart rate. Patient remains afebrile at this time. Objective Vitals Vital Signs Date Time Temp Pulse Resp B/P (MAP) Pulse Ox O2 Delivery O2 Flow Rate FiO2 10/26/17 04:00 98.2 108 19 137/89 (105) 93 10/26/17 00:00 98.0 129 20 151/114 (126) 94 10/25/17 20:00 98.0 115 19 153/89 (110) 95 10/25/17 19:59 95 Nasal Cannula 1.00 10/25/17 19:50 68 10/25/17 17:18 98.6 76 18 137/93 (108) 94 10/25/17 15:05 98 Nasal Cannula 2.00 10/25/17 14:05 18 10/25/17 13:43 98.6 80 19 200/110 (140) 95 10/25/17 11:49 96.9 63 18 146/90 (108) 94 158/97 (117) 138/86 (103) 136/87 (103) 10/25/17 11:33 73 17 143/100 (114) 95 10/25/17 10:48 70 17 129/88 (102) 96 Room Air 10/25/17 09:16 76 118/74 (89) 10/25/17 09:15 79 18 96 Room Air 10/25/17 09:11 79 137/94 (108) 10/25/17 08:46 97.7 66 18 182/110 (134) 96 Result Diagram: 10/25/17 0855 10/25/17 0855 Objective Remarks GENERAL: Well-developed, well-nourished, in no acute distress. alert and orientated HEENT: Head is normocephalic without any lesions or masses noted. Facial features are symmetric. Eyes: Extraocular muscles are intact. Conjunctivae were clear. NECK: Supple without any masses. Trachea midline no deviation. No JVD, CARDIAC: Irregular rhythm, irregular rate. S1/S2 are heard. No murmurs gallops or rubs. LUNGS: Clear to auscultation bilaterally. No wheeze, rhonchi or rales. No use of accessory muscles on inspiration or expiration. ABDOMEN: Soft, nontender. Nondistended. Bowel sounds heard in all 4 quadrants. No organomegaly or masses. Negative rebound, negative guarding EXTREMITIES: No edema, pulses are equal bilaterally. No cyanosis or clubbing NEUROLOGY: Mood and affect appear appropriate. Cranial nerves II through XII grossly intact. Moving all extremities, speech is clear Urinary Catheter: No Vascular Central Line Catheter: No A/P Assessment and Plan Chest pain, atypical -Patient does have increased risk factors to include age, history of tobacco use , hypertension, hyperlipidemia, family history of heart disease -Patient had been ruled out for acute coronary event with serial cardiac enzymes which remained negative -Serial EKG continues to show atrial fibrillation without any significant changes or elevations -Myocardial perfusion study performed and indicated area of the small fixed defect, no reversible ischemia, low risk -Continue aspirin, nitroglycerin paste, morphine for pain control -Continue monitor telemetry Chronic atrial fibrillation, hyperlipidemia -Continue home medications DVT prevention -Sequential compression devices -Patient currently on Coumadin Discharge Planning Discharge home in stable condition Activity: Ad laura. Diet: Healthy heart diet Medication per medication reconciliation Follow-up with primary medical doctor in 1 week Jordan Cooper October 26, 2017 08:34
[2017-10-26] MEDS ORDERED: TAMSULOSIN HCL 0.4 MG CAP PO SCH (09:00)
[2017-10-26] MEDS ORDERED: PANTOPRAZOLE SOD 20 MG DELAYED RELEASE TAB PO SCH (09:00)
[2017-10-26] MEDS: SODIUM CHLORIDE 0.9% FLUSH 10 ML FLUSH IV FLUSH SCH (09:00)
[2017-10-26] MEDS ORDERED: POTASSIUM CITRATE 5 MEQ PO SCH (09:00)
[2017-10-26] MEDS ORDERED: FUROSEMIDE 20 MG TAB PO SCH (09:00)
[2017-10-26] MEDS: METOPROLOL TARTRATE 25 MG TAB PO SCH (09:00)
[2017-10-26] MEDS ORDERED: REGADENOSON INJ 0.4 MG/5 ML SYR IV ONE (10:28)
--- NOTE | 2017-10-26 11:34 | RADRPT ---
EXAM DATE/TIME: 10/26/2017 10:15 [facility] COMPARISON: No previous studies available for comparison. INDICATIONS : Substernal chest pain with diaphoresis. Angina. Atrial fibrillation. DOSE: 35 mCi Tc99m Myoview at stress. 11 mCi Tc99m Myoview at rest. 0.4 mg Lexiscan STRESS SYMPTOMS: Dyspnea and weird feeling. EJECTION FRACTION: 63% MEDICAL HISTORY : Gastroesophageal reflux disease. Hypertension. SURGICAL HISTORY : Tonsillectomy. Bilateral hip and bilateral knee replacement. ENCOUNTER: Initial ACUITY: 1 day PAIN SCALE: 9/10 LOCATION: Substernal chest TECHNIQUE: The patient underwent pharmacologic stress with infusion of prescribed dose. Continuous ECG tracing was monitored during stress. Gated SPECT imaging was performed after stress and conventional SPECT i maging was performed at rest. The examination was performed on a SPECT/CT scanner, both attenuation and non-corrected datasets were reviewed. FINDINGS: DISTRIBUTION: The maximum perfused segment at stress is in the septal wall. Moderate gut activity does obscure the inferior wall. Small fixed defect is seen in the anterior wall. PERFUSION STUDY: There is no significant redistribution. GATED STUDY: There is intact wall motion and thickening without hypokinetic or dyskinetic segments. CONCLUSION: Small fixed defect anterior wall. Ejection fraction 63%. Negative for stress-induced ischemia RISK CATEGORY: Low (<1% Annual Mortality Rate) Frankie Herbert MD FACR on October 26, 2017 at 11:29 Board Certified Radiologist. This report was verified electronically.
[2017-10-26 12:00] VITALS: BP 160/98; PULSE 83; RESP 18; TEMP 96.8; O2SAT 94
--- NOTE | 2017-10-26 12:29 | HHI.DCPOC ---
Discharge Care Plan Diagnosis: (1) Chest pain Goals to Promote Your Health * To prevent worsening of your condition and complications * To maintain your health at the optimal level Directions to Meet Your Goals Take your medications as prescribed Follow your dietary instruction Follow activity as directed Keep your appointments as scheduled Take your immunizations and boosters as scheduled If your symptoms worsen call your PCP, if no PCP go to Urgent Care Center or Emergency Room Smoking is Dangerous to Your Health. Avoid second hand smoke Call the 24-hour hour crisis hotline for domestic abuse at Jordan Cooper October 26, 2017 12:29
--- NOTE | 2017-10-26 13:56 | TR ---
Date Performed: 10/26/2017 Time Performed: 10:39:43 DOCTOR: Leroy Chaudhari DRUG LIST: CLINICAL HISTORY: CHEST PAIN REASON FOR TEST: Chest pain REASON FOR ENDING: OBSERVATION: CONCLUSION: COMMENTS: Lexiscan stress test was performed under standard four minute protocol. Radionuclide was injected one minute prior to ending the test. No electrocardiographic abormalities were present t o suggest ischemia. Nuclear imaging and interpretation are pending.
--- NOTE | 2017-10-26 20:42 | EKG ---
Date Performed: 10/25/2017 Time Performed: 14:03:11 PTAGE: 72 years EKG: ATRIAL FIBRILLATION ABNORMAL ECG PREVIOUS TRACING : 10/25/2017 12.10 DOCTOR: Phu Desir Interpretating Date/Time 10/26/2017 20:42:36
--- NOTE | 2017-10-26 20:44 | EKG ---
Date Performed: 10/25/2017 Time Performed: 16:52:38 PTAGE: 72 years EKG: ATRIAL FIBRILLATION ABNORMAL RHYTHM ECG PREVIOUS TRACING : 10/25/2017 14.03 DOCTOR: Phu Desir Interpretating Date/Time 10/26/2017 20:43:01
== END 2017-10-26 13:57 | disposition home or self-care (01) ==
LOC: PHED 08:44 → PHEDA 10:44 → PH3B 11:42
PROVIDERS: ADMIT Hospitalist; ATTEND Hospitalist
DX: R07.89 Other chest pain (principal); R06.02 Shortness of breath; R11.0 Nausea; R61 Generalized hyperhidrosis; I48.2 Chronic atrial fibrillation; I10 Essential (primary) hypertension; E78.5 Hyperlipidemia, unspecified; R94.31 Abnormal electrocardiogram [ECG] [EKG]; K21.9 Gastro-esophageal reflux disease without esophagitis; M54.5 Low back pain; G89.29 Other chronic pain; F41.9 Anxiety disorder, unspecified; H91.90 Unspecified hearing loss, unspecified ear; N40.0 Benign prostatic hyperplasia without lower urinary tract symptoms; M19.90 Unspecified osteoarthritis, unspecified site; F17.290 Nicotine dependence, other tobacco product, uncomplicated; Z79.899 Other long term (current) drug therapy; Z79.01 Long term (current) use of anticoagulants; Z82.49 Family history of ischemic heart disease and other diseases of the circulatory system; Z85.820 Personal history of malignant melanoma of skin
CPT/HCPCS: 71045; 78452; 80048; 82550; 83690; 83735; 83880; 84484; 85025; 85610; 85730; 93005; 93017; 99285; A9502; G0378; J2785

== ENCOUNTER 2018-04-18 15:42 | Inpatient (IN) ==
--- NOTE | 2018-04-18 16:22 | ED ---
HPI General Chief complaint: Neuro Symptoms/Deficit Stated complaint: Patient states feels foggy/disoriented Time Seen by Provider: 04/18/18 15:58 History of Present Illness HPI narrative: This is a 72-year-old male with history of atrial fibrillation on Coumadin, hypertension, hyperlipidemia, primary care physician Dr. Altamirano, hull drafter Dr. Higgins, presents for evaluation. He reports that at 1 PM today he was at his daughter's house playing pool when he felt lightheaded, dizzy, foggy in the head. He reports that he returned home and checked his blood pressure was 70/49. He then came here for further evaluation. He reports that over the past 2 hours his symptoms have slowly improved, still feels slightly foggy and lightheaded. He denies any episodic chest pain, shortness of breath, vision loss, nausea, vomiting, abdominal pain, numbness or tingling or weakness in extremities, slurred speech, facial droop. He reports that he began seeing hull drafter Dr. Higgins approximately 6 months ago and some of his antihypertensive medications were changed. He is currently on a blood pressure regimen of losartan 100 mg, clonidine 0.1 TID, spironolactone 25 mg, carvedilol 25 mg BID, Lasix 20 mg daily. He reports that he has been taking his medications as prescribed. He denies any dietary changes. He denies any recent illness. He is also on Coumadin for atrial fibrillation. He occasionally takes Xanax for anxiety. He has no other complaints at this time. Related Data Home Medications Medication Instructions Recorded Confirmed alprazolam 0.5 mg PO BID PRN 01/30/18 04/18/18 ascorbic acid (vitamin C) [Vitamin 500 mg PO DAILY 01/30/18 04/18/18 C] carvedilol 25 mg PO BID 01/30/18 04/18/18 clonidine HCl 0.1 mg PO Q8HR PRN 01/30/18 04/18/18 furosemide 20 mg PO DAILY 01/30/18 04/18/18 multivitamin 1 tab PO DAILY 01/30/18 04/18/18 [id number]-epa-fish oil [[place]-3 1 tab PO DAILY 01/30/18 04/18/18 Fish Oil] omeprazole 20 mg PO DAILY 01/30/18 04/18/18 red yeast rice 600 mg PO DAILY 01/30/18 04/18/18 spironolactone 25 mg PO DAILY 01/30/18 04/18/18 tamsulosin 0.4 mg PO DAILY 01/30/18 04/18/18 warfarin 5 mg PO DAILY 01/30/18 04/18/18 zolpidem 10 mg PO HS PRN 01/30/18 04/18/18 losartan 100 mg PO DAILY 04/18/18 04/18/18 Previous Rx's Medication Instructions Recorded tramadol 50 mg PO Q4-6H PRN #10 tab 01/30/18 Allergies Allergy/AdvReac Type Severity Reaction Status Date / Time codeine Allergy Severe SHORTNESS Verified 04/18/18 16:09 OF BREATHE hydrocodone Allergy Severe Itching Verified 04/18/18 16:09 Review of Systems ROS: all other systems reviewed are negative [facility] Social History Social History Substance History: No History of Abuse Smoking Status: Current some day smoker Tobacco Type: Cigars How Often Do You Have a Drink Containing Alcohol: 2 to 4 times a month Recent Travel in [facility] within the Last 8 Weeks: No Recent Out of Country Travel within the Last 8 Weeks: No Immunization History Tetanus Immunization: Unsure Exam Narrative Exam Narrative: GENERAL: Pleasant well-developed well-nourished male in no acute distress SKIN: Warm and dry. HEAD: Atraumatic. Normocephalic. EYES: Pupils equal and round. No scleral icterus. No injection or drainage. ENT: No nasal bleeding or discharge. Mucous membranes pink and moist. NECK: Trachea midline. No JVD. CARDIOVASCULAR: Irregular rate and rhythm. No murmur appreciated. RESPIRATORY: No accessory muscle use. Clear to auscultation. Breath sounds equal bilaterally. GASTROINTESTINAL: Abdomen soft, non-tender, nondistended. Hepatic and splenic margins not palpable. MUSCULOSKELETAL: No obvious deformities. No clubbing. No cyanosis. No edema. NEUROLOGICAL: Awake and alert. No obvious cranial nerve deficits. Motor grossly within normal limits. Normal speech. Normal scale technician strength bilaterally, no upper or lower extremity drift. PSYCHIATRIC: Appropriate mood and affect; insight and judgment normal. Course Initial Documented Vital Signs Temperature 98.3 F 04/18/18 15:51 Pulse Rate 92 H 04/18/18 15:51 Respiratory Rate 16 11/04/18 15:51 Blood Pressure 108/57 L 04/18/18 15:51 Pulse Oximetry 96 04/18/18 15:51 Last Documented Vital Signs Temperature 98.3 F 04/18/18 15:51 Pulse Rate 92 H 04/18/18 15:51 Respiratory Rate 16 04/18/18 15:51 Blood Pressure 108/57 L 04/18/18 15:51 Pulse Oximetry 96 04/18/18 15:51 Medical Decision Making MDM Narrative Medical decision making narrative: The patient was placed on ECG monitoring pulse oximetry. A 12-lead EKG was obtained revealing atrial fibrillation with a rate of 85, no acute ST elevation. Lab work, CT brain ordered. The patient was given 500 mL normal saline bolus. He had a myocardial perfusion scan in October 2017 which revealed an ejection fraction of 63%. Lab work is been reviewed. GFR is 86 which is decreased from his baseline. Upon reexamination the patient is still hypotensive with a blood pressure of 88/ 61. Therefore additional 500 mL fluid bolus has been ordered. Medical Screen Exam Complete: Yes Emergency Medical Condition: Yes Differential Diagnosis Differential Diagnosis: orthostatic hypotensionIatrogenic hypotensive episode versus electrolyte abnormality versus arrhythmia versus near syncope versus intracranial hemorrhage versus orthostatic hypotension Lab Data Result diagrams: 04/18/18 16:22 04/18/18 16:22 Lab Results 04/18/18 04/18/18 04/18/18 Range/Units 16:22 16:22 16:22 WBC 6.0 (4.0-11.0) th/mm3 RBC 4.22 L (4.50-5.90) mil/mm3 Hgb 15.2 (13.0-17.0) gm/dL Hct 42.5 (39.0-51.0) % MCV 100.7 H (80.0-100.0) fL MCH 35.9 H (27.0-34.0) pg MCHC 35.7 (32.0-36.0) % RDW 13.8 (11.6-17.2) % Plt Count 135 L (150-450) th/mm3 MPV 8.5 (7.0-11.0) fL Neut % (Auto) 57.3 (16.0-70.0) % Lymph % (Auto) 29.9 (9.0-44.0) % [place] % (Auto) 10.4 H (0.0-8.0) % Eos % (Auto) 1.8 (0.0-4.0) % Baso % (Auto) 0.6 (0.0-2.0) % Neut # (Auto) 3.4 (1.8-7.7) th/mm3 Lymph # (Auto) 1.8 (1.0-4.8) th/mm3 [place] # (Auto) 0.6 (0.0-0.9) th/mm3 Eos # (Auto) 0.1 (0.0-0.4) th/mm3 Baso # (Auto) 0.0 (0.0-0.2) th/mm3 WBC Differential . Differential Comment Auto diff final PT 29.5 H (9.8-11.6) sec INR 2.9 Ratio Sodium 141 (136-145) meq/L Potassium 3.9 (3.5-5.1) meq/L Chloride 105 (98-107) meq/L Carbon Dioxide 28.7 (21.0-32.0) meq/L Anion Gap 7 (5-15) meq/L BUN 13 (7-18) mg/dL Creatinine 1.40 H (0.60-1.30) mg/dL Estimated GFR 50 L (>89) mL/min Random Glucose 86 (74-106) mg/dL Calcium 8.8 (8.5-10.1) mg/dL Magnesium 1.7 (1.5-2.5) mg/dL Total Creatine Kinase 52 (39-308) U/L Troponin I Less than 0.02 L (0.02-0.05) ng/mL B-Natriuretic Peptide (0-100) pg/mL 04/18/18 04/18/18 Range/Units 16:22 16:22 WBC (4.0-11.0) th/mm3 RBC (4.50-5.90) mil/mm3 Hgb (13.0-17.0) gm/dL Hct (39.0-51.0) % MCV (80.0-100.0) fL MCH (27.0-34.0) pg MCHC (32.0-36.0) % RDW (11.6-17.2) % Plt Count (150-450) th/mm3 MPV (7.0-11.0) fL Neut % (Auto) (16.0-70.0) % Lymph % (Auto) (9.0-44.0) % [place] % (Auto) (0.0-8.0) % Eos % (Auto) (0.0-4.0) % Baso % (Auto) (0.0-2.0) % Neut # (Auto) (1.8-7.7) th/mm3 Lymph # (Auto) (1.0-4.8) th/mm3 [place] # (Auto) (0.0-0.9) th/mm3 Eos # (Auto) (0.0-0.4) th/mm3 Baso # (Auto) (0.0-0.2) th/mm3 WBC Differential Differential Comment PT (9.8-11.6) sec INR Ratio Sodium (136-145) meq/L Potassium (3.5-5.1) meq/L Chloride (98-107) meq/L Carbon Dioxide (21.0-32.0) meq/L Anion Gap (5-15) meq/L BUN (7-18) mg/dL Creatinine (0.60-1.30) mg/dL Estimated GFR (>89) mL/min Random Glucose (74-106) mg/dL Calcium (8.5-10.1) mg/dL Magnesium (1.5-2.5) mg/dL Total Creatine Kinase Cancelled (39-308) U/L Troponin I (0.02-0.05) ng/mL B-Natriuretic Peptide 117 H (0-100) pg/mL Imaging Data Radiologist's impression: Head CT 04/18/18 16:14 CONCLUSION: 1. No evidence of acute infarct, hemorrhage, mass or edema. 2. Cerebral white matter disease characteristic of chronic microvascular ischemic changes are again noted. . Discharge Plan Discharge Disposition Patient Disposition: 30 Still Patient Discharge Condition Condition: Stable Discharge Details Diagnosis: Hypotensive episode, Lightheadedness Physicians Team ED Provider: Pe[facility] ED Midlevel Provider: Jasen Gonzáles Primary Care Provider: Graham Altamirano Rxs /Orders / Referrals /Forms Prescriptions: No Action multivitamin Tablet 1 tab PO DAILY RF: 0 [id number]-epa-fish oil [[place]-3 Fish Oil] 300-1,000 mg Capsule 1 tab PO DAILY RF: 0 carvedilol 25 mg Tablet 25 mg PO BID RF: 0 clonidine HCl 0.1 mg Tablet 0.1 mg PO Q8HR PRN (Reason: Hypertension) RF: 0 spironolactone 25 mg Tablet 25 mg PO DAILY RF: 0 alprazolam 0.5 mg Tablet 0.5 mg PO BID PRN (Reason: Anxiety) RF: 0 tamsulosin 0.4 mg Capsule,Extended Release 24hr 0.4 mg PO DAILY RF: 0 ascorbic acid (vitamin C) [Vitamin C] 500 mg Capsule, Extended Release 500 mg PO DAILY RF: 0 omeprazole 20 mg Capsule,Delayed Release(Dr/Ec) 20 mg PO DAILY RF: 0 furosemide 20 mg Tablet 20 mg PO DAILY RF: 0 red yeast rice 600 mg Capsule 600 mg PO DAILY RF: 0 warfarin 5 mg Tablet 5 mg PO DAILY RF: 0 zolpidem 10 mg Tablet 10 mg PO HS PRN (Reason: Insomnia) RF: 0 tramadol 50 mg tablet 50 mg PO Q4-6H PRN (Reason: pain) Qty: 10 RF: 0 losartan 100 mg Tablet 100 mg PO DAILY RF: 0 Status ED Status: With Doctor
--- NOTE | 2018-04-18 16:45 | CT ---
EXAM DATE: 04/18/2018 4:40 PM EST AGE/SEX: 72 years / Male INDICATIONS: Dizziness today. CLINICAL DATA: This is the patient's initial encounter. Patient reports that signs and symptoms have been present for 1 day and indicates a pain score of 0/10. MEDICAL/SURGICAL HISTORY: Hypertension. None. RADIATION DOSE: 38.06 CTDI (mGy) COMPARISON: [facility] [place] W/O [place]AST, 01/30/2018. . TECHNIQUE: CT of the head without contrast. Using automated exposure control and adjustment of the mA and/or kV according to patient size, radiation dose was kept as low as reasonably achievable to ob tain optimal diagnostic quality images. DICOM format image data is available electronically for revi ew and comparison. FINDINGS: Cerebrum: Significant cerebral white matter hypodensity especially in the frontal lobes is again not ed. There are no characteristic findings of acute infarct, hemorrhage, mass or edema. Mild enlargement of the lateral ventricles is stable. Posterior Fossa: The cerebellum and brainstem are intact. The 4th ventricle is midline. The cerebe llopontine angle is unremarkable. Extracranial: The visualized portion of the orbits is intact. Skull: The calvaria is intact. No evidence of skull fracture. CONCLUSION: 1. No evidence of acute infarct, hemorrhage, mass or edema. 2. Cerebral white matter disease characteristic of chronic microvascular ischemic changes are again noted. . Electronically signed by: Rah Barnes MD 04/18/2018 4:43 PM EST
[2018-04-18 16:46] LABS: Baso % (Auto) 0.6 % (0.0-2.0); Eos # (Auto) 0.1 th/mm3 (0.0-0.4); Eos % (Auto) 1.8 % (0.0-4.0); Hematocrit 42.5 % (39.0-51.0); Hemoglobin 15.2 gm/dL (13.0-17.0); Lymph # (Auto) 1.8 th/mm3 (1.0-4.8); Lymph % (Auto) 29.9 % (9.0-44.0); Mean Corpuscular HGB Conc 35.7 % (32.0-36.0); Mean Corpuscular Hemoglobin 35.9 pg (27.0-34.0); Mean Corpuscular Volume 100.7 fL (80.0-100.0); Mean Platelet Volume 8.5 fL (7.0-11.0); Mono # (Auto) 0.6 th/mm3 (0.0-0.9); Mono % (Auto) 10.4 % (0.0-8.0); Neut # (Auto) 3.4 th/mm3 (1.8-7.7); Neut % (Auto) 57.3 % (16.0-70.0); Platelet Count 135 th/mm3 (150-450); Red Blood Count 4.22 mil/mm3 (4.50-5.90); Red Cell Distribution Width 13.8 % (11.6-17.2)
[2018-04-18] MEDS ORDERED: Sodium Chlor 0.9% Inj 500 ML IV.SIG SCH ×3 (17:00→18:00)
[2018-04-18 17:05] LABS: INR 2.9 Ratio; Prothrombin Time 29.5 sec (9.8-11.6)
[2018-04-18 17:11] LABS: Anion Gap 7 meq/L (5-15); Blood Urea Nitrogen 13 mg/dL (7-18); Calcium 8.8 mg/dL (8.5-10.1); Carbon Dioxide 28.7 meq/L (21.0-32.0); Chloride 105 meq/L (98-107); Glomerular Filtration Rate 50 mL/min (>89); Glucose,Random 86 mg/dL (74-106); Magnesium 1.7 mg/dL (1.5-2.5); Potassium 3.9 meq/L (3.5-5.1); Sodium 141 meq/L (136-145)
[2018-04-18 18:05] LABS: Creatine Kinase 52 U/L (39-308)
[2018-04-18] MEDS ORDERED: ALPRAZolam 0.5 MG Tablet PO PRN (19:46)
[2018-04-18] MEDS ORDERED: Bisacodyl 10 MG Supp RECTAL PRN (19:51)
--- NOTE | 2018-04-18 20:01 | P.HP ---
History of Present Illness Service: [facility] Primary Care Physician: Graham Altamirano MD Chief Complaint: Lightheaded with low blood pressure History of Present Illness: HPI narrative: This is a 72-year-old male with history of atrial fibrillation on Coumadin, hypertension, hyperlipidemia, , outside medical sales representative Dr. Higgins, presents for evaluation. He reports that at 1 PM today he was at his daughter's house playing pool when he felt lightheaded, dizzy, foggy in the head. He reports that he returned home and checked his blood pressure was 70/49. He then came here for further evaluation. He reports that over the past 2 hours his symptoms have slowly improved, still feels slightly foggy and lightheaded. He denies any episodic chest pain, shortness of breath, vision loss, nausea, vomiting, abdominal pain, numbness or tingling or weakness in extremities, slurred speech, facial droop. He reports that he began seeing outside medical sales representative Dr. Higgins approximately 6 months ago and some of his antihypertensive medications were changed. He is currently on a blood pressure regimen of losartan 100 mg, clonidine 0.1 TID, spironolactone 25 mg, carvedilol 25 mg BID, Lasix 20 mg daily. He reports that he has been taking his medications as prescribed. He denies any dietary changes. He denies any recent illness. He is also on Coumadin for atrial fibrillation. He occasionally takes Xanax for anxiety. He has no other complaints at this time. In review in ER given IV fluid for low blood pressure with improvement,did have some renal insufficency which may be from diuretic use ,will hold diuretics and losartan for now. Related Data - Diagnosis (1) Hypotensive episode (2) Lightheadedness (3) Atrial fibrillation Review of Systems All other systems reviewed negative except as stated in HPI PMFSH - History History Provided By: Patient - Medical History Medical History: Medical History (Last Reviewed 04/18/18 @ 19:58 by Graham Altamirano MD) Anxiety Atrial fibrillation Duodenitis Hyperlipidemia Hypertension Kidney stone - Surgical History Surgical History: Surgical History (Last Reviewed 04/18/18 @ 19:58 by Graham Altamirano MD) H/O bilateral hip replacements H/O lithotripsy History of bilateral knee replacement - Tobacco History Tobacco Use In Past 30 Days: No Smoking Status: Current some day smoker Tobacco Type: Cigars - Alcohol History How Often Do You Have a Drink Containing Alcohol: 2 to 4 times a month - Substance Use History Substance History: No History of Abuse - Travel History Recent Travel in the [place] Within the Last 8 Weeks: No Recent Travel Out of the Country Within the Last 8 Weeks: No - Immunization History Tetanus Immunization: Unsure Medications and Allergies Active Medications: Active Medications Alprazolam (Xanax) 0.5 mg PO BID PRN PRN Reason: Anxiety Carvedilol (Coreg) 25 mg PO BID JOSIAH Clonidine HCl (Catapres) 0.1 mg PO Q8H PRN PRN Reason: HYPERTENSION Non-Formulary Medication (Ascorbic Acid (Vitamin C) [Vitamin C]) 500 mg PO DAILY JOSIAH Non-Formulary Medication (Multivitamin [Multivitamin]) 1 tab PO DAILY JOSIAH Non-Formulary Medication (Omeprazole [Omeprazole]) 20 mg PO DAILY JOSIAH Sodium Chloride (Ns Flush) 2 ml IV.FLUSH PRN PRN PRN Reason: FLUSH AFTER USING IV ACCESS Tramadol HCl (Ultram) 50 mg PO Q4-6H PRN PRN Reason: pain Warfarin Sodium (Coumadin) 5 mg PO DAILY JOSIAH Zolpidem Tartrate (Ambien) 10 mg PO HS PRN PRN Reason: Insomnia Allergies Allergy/AdvReac Type Severity Reaction Status Date / Time codeine Allergy Severe SHORTNESS Verified 04/18/18 16:09 OF BREATHE hydrocodone Allergy Severe Itching Verified 04/18/18 16:09 Home Medications Medication Instructions Recorded Confirmed Type alprazolam 0.5 mg PO BID PRN 01/30/18 04/18/18 History ascorbic acid (vitamin C) [Vitamin 500 mg PO DAILY 01/30/18 04/18/18 History C] carvedilol 25 mg PO BID 01/30/18 04/18/18 History clonidine HCl 0.1 mg PO Q8HR PRN 01/30/18 04/18/18 History furosemide 20 mg PO DAILY 01/30/18 04/18/18 History multivitamin 1 tab PO DAILY 01/30/18 04/18/18 History odtzv-3j-ekg-epa-fish oil [[place]-3 1 tab PO DAILY 01/30/18 04/18/18 History Fish Oil] omeprazole 20 mg PO DAILY 01/30/18 04/18/18 History red yeast rice 600 mg PO DAILY 01/30/18 04/18/18 History spironolactone 25 mg PO DAILY 01/30/18 04/18/18 History tamsulosin 0.4 mg PO DAILY 01/30/18 04/18/18 History warfarin 5 mg PO DAILY 01/30/18 04/18/18 History zolpidem 10 mg PO HS PRN 01/30/18 04/18/18 History losartan 100 mg PO DAILY 04/18/18 04/18/18 History Exam Vital signs: Vital Signs 04/18/18 15:51 04/18/18 19:00 Temperature 98.3 F Pulse Rate 92 H 73 Respiratory Rate 16 16 Blood Pressure 108/57 L 130/90 Pulse Oximetry 96 98 Intake & Output 04/18/18 04/18/18 04/19/18 06:59 18:59 06:59 Intake Total 500 / 500 500 / 500 Balance 500 / 500 500 / 500 Weight 108.862 kg Intake: IV 500 / 500 500 / 500 NS Inj 500 ML @ 1000 mls/hr IV. 500 / 500 500 / 500 SIG BOLUS [facility] Rx#:[id number] Narrative: GENERAL: SKIN: Warm and dry. HEAD: Normocephalic. EYES: No scleral icterus. No injection or drainage. NECK: Supple, trachea midline. No JVD or lymphadenopathy. CARDIOVASCULAR: IRREG rate and rhythm without murmurs, gallops, or rubs. RESPIRATORY: Breath sounds equal bilaterally. No accessory muscle use. GASTROINTESTINAL: Abdomen soft, non-tender, nondistended. MUSCULOSKELETAL: No cyanosis, or edema. BACK: Nontender without obvious deformity. No CVA tenderness. Results - Labs CBC & Chem 7: 04/18/18 16:22 04/18/18 16:22 Labs: Laboratory Results - last 24 hr 04/18/18 04/18/18 04/18/18 16:22 16:22 16:22 WBC 6.0 RBC 4.22 L Hgb 15.2 Hct 42.5 MCV 100.7 H MCH 35.9 H MCHC 35.7 RDW 13.8 Plt Count 135 L MPV 8.5 Neut % (Auto) 57.3 Lymph % (Auto) 29.9 [place] % (Auto) 10.4 H Eos % (Auto) 1.8 Baso % (Auto) 0.6 Neut # (Auto) 3.4 Lymph # (Auto) 1.8 [place] # (Auto) 0.6 Eos # (Auto) 0.1 Baso # (Auto) 0.0 WBC Differential . Differential Comment Auto diff final PT 29.5 H INR 2.9 Sodium 141 Potassium 3.9 Chloride 105 Carbon Dioxide 28.7 Anion Gap 7 BUN 13 Creatinine 1.40 H Estimated GFR 50 L Random Glucose 86 Calcium 8.8 Magnesium 1.7 Total Creatine Kinase 52 Troponin I Less than 0.02 L B-Natriuretic Peptide 04/18/18 04/18/18 16:22 16:22 WBC RBC Hgb Hct MCV MCH MCHC RDW Plt Count MPV Neut % (Auto) Lymph % (Auto) [place] % (Auto) Eos % (Auto) Baso % (Auto) Neut # (Auto) Lymph # (Auto) [place] # (Auto) Eos # (Auto) Baso # (Auto) WBC Differential Differential Comment PT INR Sodium Potassium Chloride Carbon Dioxide Anion Gap BUN Creatinine Estimated GFR Random Glucose Calcium Magnesium Total Creatine Kinase Cancelled Troponin I B-Natriuretic Peptide 117 H - Imaging Impressions Head CT 04/18/18 16:14 CONCLUSION: 1. No evidence of acute infarct, hemorrhage, mass or edema. 2. Cerebral white matter disease characteristic of chronic microvascular ischemic changes are again noted. . Caprini VTE Risk Assessment Caprini VTE Risk Assessment: Moderate/High Risk (score >= 2) Caprini Risk Assessment Model: Point Value = 1 Point Value = 2 Point Value = 3 Point Value = 5 Age 41-60 Minor surgery BMI > 25 kg/m2 Swollen legs Varicose veins or History of unexplained or recurrent spontaneous Oral contraceptives or hormone replacement Sepsis (< 1 month) Serious lung disease, including pneumonia (< 1 month) Abnormal pulmonary function Acute myocardial infarction Congestive heart failure (< 1 month) History of inflammatory bowel disease Medical patient at bed rest Age 61-74 Arthroscopic surgery Major open surgery (> 45 min) Laparoscopic surgery (> 45 min) Malignancy Confined to bed (> 72 hours) Immobilizing plaster cast Central venous access Age >= 75 History of VTE Family history of VTE Factor V Leiden Prothrombin [id number] Lupus anticoagulant Anticardiolipin antibodies Elevated serum homocysteine Heparin-induced thrombocytopenia Other congenital or acquired thrombophilia Stroke (< 1 month) Elective arthroplasty Hip, pelvis, or leg fracture Acute spinal cord injury (< 1 month) Prophylaxis Regimen: Total Risk Factor Score Risk Level Prophylaxis Regimen 0-1 Low Early ambulation 2 Moderate Order ONE of the following: *Sequential Compression Device (SCD) *Heparin 5000 units SQ BID 3-4 Higher Order ONE of the following medications: *Heparin 5000 units SQ TID *Enoxaparin/Lovenox 40 mg SQ daily (WT < 150 kg, CrCl > 30 mL/min) *Enoxaparin/Lovenox 30 mg SQ daily (WT < 150 kg, CrCl > 10-29 mL/min) *Enoxaparin/Lovenox 30 mg SQ BID (WT < 150 kg, CrCl > 30 mL/min) AND/OR *Sequential Compression Device (SCD) 5 or more Highest Order ONE of the following medications: *Heparin 5000 units SQ TID (Preferred with Epidurals) *Enoxaparin/Lovenox 40 mg SQ daily (WT < 150 kg, CrCl > 30 mL/min) *Enoxaparin/Lovenox 30 mg SQ daily (WT < 150 kg, CrCl > 10-29 mL/min) *Enoxaparin/Lovenox 30 mg SQ BID (WT < 150 kg, CrCl > 30 mL/min) AND *Sequential Compression Device (SCD) Assessment and Plan - Assessment (1) Hypotensive episode Code(s): I95.9 - Hypotension, unspecified Status: Acute Plan: Patient was given IV fluid in the emergency room, and blood pressure is stabilizing normal will observe and monitor when we will hold diuretics as he did have some renal insufficiency recheck labs in a.m. and follow blood pressure (2) Lightheadedness Code(s): R42 - Dizziness and giddiness Status: Acute Plan: Lightheadedness was related to the low blood pressure which has resolved (3) Atrial fibrillation Code(s): I48.91 - Unspecified atrial fibrillation Status: Acute Plan: Patient with atrial fib which is at a controlled rate now we will continue the Coreg continue his Coumadin INR is therapeutic - Plan Further plan as case develops Code Status: Full Discussed Condition With: Patient
[2018-04-18] MEDS: Carvedilol 12.5 MG Tablet PO SCH (22:49)
[2018-04-19 05:58] LABS: Baso % (Auto) 0.5 % (0.0-2.0); Eos # (Auto) 0.1 th/mm3 (0.0-0.4); Eos % (Auto) 2.2 % (0.0-4.0); Hematocrit 40.9 % (39.0-51.0); Hemoglobin 13.9 gm/dL (13.0-17.0); Lymph # (Auto) 1.4 th/mm3 (1.0-4.8); Lymph % (Auto) 38.8 % (9.0-44.0); Mean Corpuscular Hemoglobin 34.7 pg (27.0-34.0); Mono # (Auto) 0.3 th/mm3 (0.0-0.9); Mono % (Auto) 9.6 % (0.0-8.0); Neut # (Auto) 1.7 th/mm3 (1.8-7.7); Neut % (Auto) 48.9 % (16.0-70.0); Platelet Count 91 th/mm3 (150-450); Red Blood Count 4.01 mil/mm3 (4.50-5.90); Red Cell Distribution Width 13.7 % (11.6-17.2); White Blood Count 3.5 th/mm3 (4.0-11.0)
[2018-04-19 06:15] LABS: Calcium 8.5 mg/dL (8.5-10.1); Carbon Dioxide 27.5 meq/L (21.0-32.0); Potassium 3.5 meq/L (3.5-5.1)
--- NOTE | 2018-04-19 09:05 | P.PNIM ---
Subjective Interval history: Pt reports that he is feeling better this morning, no longer having dizziness He did not sleep well last night as he usually takes alprazolam to help sleep and did not get it last night. Physical Exam Vital signs: Last Vital Signs Temp 97.7 F 04/19/18 07:53 Pulse 83 04/19/18 04:00 Resp 16 04/19/18 07:53 BP 145/93 H 04/19/18 07:53 Pulse Ox 96 04/19/18 07:53 Narrative: General: NAD, AAOx3 Chest: CTA Cardiac: Irregular Abd: +BS, soft ND/NT Ext: Left knee edema Results Labs CBC & Chem 7: 04/19/18 04:39 04/19/18 04:[address] 04/18/18 16:14 CONCLUSION: 1. No evidence of acute infarct, hemorrhage, mass or edema. 2. Cerebral white matter disease characteristic of chronic microvascular ischemic changes are again noted. . Assessment and Plan Assessment (1) Hypotensive episode: Code(s): I95.9 - Hypotension, unspecified Status: Acute (2) Lightheadedness: Code(s): R42 - Dizziness and giddiness Status: Acute (3) Atrial fibrillation: Code(s): I48.91 - Unspecified atrial fibrillation Status: Acute Plan Hypotension Hypertension Diastolic CHF - Pt is a 72 y/o male with atrial fibrillation on Coumadin, hypertension, hyperlipidemia, diastolic CHF. His land development manager is Dr. Higgins. - [place] [facility] [place] with complaints of dizziness, lightheadedness and feeling "foggy in the head" which began yesterday. His BP at home was 70/49 so he reported to the ED for further evaluation. - He reports that he began seeing land development manager Dr. Higgins approximately 6 months ago and some of his antihypertensive medications were changed. He is currently on a blood pressure regimen of losartan 100 mg daily, spironolactone 25 mg daily, carvedilol 25 mg BID, and Lasix 20 mg daily. He occasionally takes Xanax for anxiety. - In the ER he was given IV fluid for low blood pressure with improvement - Also had some renal insufficiency which may be from diuretic use so his diuretics and losartan were held at admission. - BP is better this morning - He is planned to receive his Coreg 25mg BID this morning and we will see stefano his BP trends. Given his hx of diastolic CHF he may need one diuretic added back on as he has issues with LE edema. - Last echo was 10/14/17 --> EF 55-60%, moderate MR, moderate LVH, a 5.1cm aortic root but on CTA the aortic dilation was only 4.2cm. A. fib - Coumadin dose is 2.5mg -[place] and 5mg - Recheck INR this morning. - Cont. home doses of Coumadin Renal Insufficiency - Diuretics and Losartan held at admission and pt given IVF in the ED - Labs are improved this morning - If BP stable may need to add back Lasix but if we do we may need to titrate down on the Coreg if BP remains low/normal. Progress Note: Quality VTE Deep Vein Thrombosis/Pulmonary Embolism Present on Admission: No _ (1) Atrial fibrillation Qualifiers: Atrial fibrillation type:
[2018-04-19] MEDS: Carvedilol 12.5 MG Tablet PO SCH ×2 (09:41→20:38)
[2018-04-19] MEDS: Pantoprazole Sodium 20 MG DR Tablet PO SCH (09:41)
[2018-04-19] MEDS: Ascorbic Acid 500 MG Tablet PO SCH (09:41)
[2018-04-19 09:50] LABS: INR 2.6 Ratio; Prothrombin Time 26.1 sec (9.8-11.6)
[2018-04-19] MEDS ORDERED: ALPRAZolam 0.5 MG Tablet PO PRN (15:09)
[2018-04-19] MEDS ORDERED: Carvedilol 12.5 MG Tablet PO SCH (15:09)
--- NOTE | 2018-04-19 21:29 | ECG ---
Date Performed: 04/18/2018 Time Performed: 16:13:41 PTAGE: 72 years EKG: ATRIAL FIBRILLATION MARKED LEFT AXIS DEVIATION ABNORMAL ECG PREVIOUS TRACING : 10/25/2017 16.52 Compared to previous tracing, rate faster DOCTOR: London Gamino Interpretating Date/Time 04/19/2018 21:27:52
[2018-04-20 07:23] LABS: Baso % (Auto) 0.5 % (0.0-2.0); Eos # (Auto) 0.1 th/mm3 (0.0-0.4); Eos % (Auto) 2.2 % (0.0-4.0); Hematocrit 43.1 % (39.0-51.0); Hemoglobin 14.6 gm/dL (13.0-17.0); Lymph # (Auto) 1.2 th/mm3 (1.0-4.8); Lymph % (Auto) 31.3 % (9.0-44.0); Mean Corpuscular HGB Conc 33.9 % (32.0-36.0); Mean Corpuscular Hemoglobin 34.6 pg (27.0-34.0); Mean Corpuscular Volume 102.2 fL (80.0-100.0); Mean Platelet Volume 7.7 fL (7.0-11.0); Mono # (Auto) 0.4 th/mm3 (0.0-0.9); Mono % (Auto) 9.3 % (0.0-8.0); Neut # (Auto) 2.2 th/mm3 (1.8-7.7); Neut % (Auto) 56.7 % (16.0-70.0); Platelet Count 101 th/mm3 (150-450); Red Blood Count 4.22 mil/mm3 (4.50-5.90); Red Cell Distribution Width 13.5 % (11.6-17.2); White Blood Count 3.9 th/mm3 (4.0-11.0)
[2018-04-20 07:27] LABS: INR 2.5 Ratio; Prothrombin Time 25.2 sec (9.8-11.6)
[2018-04-20 07:57] LABS: Calcium 9.1 mg/dL (8.5-10.1); Carbon Dioxide 28.5 meq/L (21.0-32.0)
--- NOTE | 2018-04-20 08:04 | P.PNIM ---
Subjective Interval history: Pt reports that he is feeling well today. He is hoping to go home today. Physical Exam Vital signs: Last Vital Signs Temp 97.6 F 04/20/18 07:43 Pulse 74 04/20/18 07:43 Resp 18 04/20/18 07:43 BP 139/82 04/20/18 07:43 Pulse Ox 94 L 04/20/18 07:43 Narrative: General: NAD, AAOx3 Chest: CTA Cardiac: Irregular Abd: +BS, soft ND/NT Ext: Left knee edema Results Labs CBC & Chem 7: 04/20/18 07:00 04/20/18 07:00 Assessment and Plan Assessment (1) Hypotensive episode: Code(s): I95.9 - Hypotension, unspecified Status: Acute (2) Lightheadedness: Code(s): R42 - Dizziness and giddiness Status: Acute (3) Atrial fibrillation: Code(s): I48.91 - Unspecified atrial fibrillation Status: Acute Plan Hypotension Hypertension Diastolic CHF - Pt is a 72 y/o male with atrial fibrillation on Coumadin, hypertension, hyperlipidemia, diastolic CHF. His magazine hand is Dr. Higgins. - Pt presented to the ED at [facility] on 04/18/18 with complaints of dizziness, lightheadedness and feeling "foggy in the head" which began yesterday. His BP at home was 70/49 so he reported to the ED for further evaluation. - He reports that he began seeing magazine hand Dr. Higgins approximately 6 months ago and some of his antihypertensive medications were changed. He is currently on a blood pressure regimen of losartan 100 mg daily, spironolactone 25 mg daily, carvedilol 25 mg BID, and Lasix 20 mg daily. He occasionally takes Xanax for anxiety. - In the ER he was given IV fluid for low blood pressure with improvement - Also had some renal insufficiency which may be from diuretic use so his diuretics and losartan were held at admission. - Coreg decreased to 12.5mg BID and his Lasix 20mg daily added back for this morning. - Last echo was 10/14/17 --> EF 55-60%, moderate MR, moderate LVH, a 5.1cm aortic root but on CTA the aortic dilation was only 4.2cm. - BP is stable this morning. - Pt planned for discharge to home on Coreg 12.5mg po BID and Lasix 20mg po daily - Instructed the pt to weight himself daily and if any increase in his weight of 5lbs or more in a 3 days time period he is to call his PCP or [employer] to further instructions. - Pt is to maintain a low sodium diet. A. fib - Coumadin dose is 2.5mg ---[place] and 5mg -- - Recheck INR 2.6 on 04/20/18 - Cont. home doses of Coumadin Renal Insufficiency - Diuretics and Losartan held at admission and pt given IVF in the ED - Labs are improved this morning - Lasix resumed on 04/20/18 and BP remained stable. - He will cont. lasix 20mg at discharge. Cont. to hold Losartan and Aldactone. Progress Note: Quality VTE Deep Vein Thrombosis/Pulmonary Embolism Present on Admission: No _ (1) Atrial fibrillation Qualifiers: Atrial fibrillation type:
[2018-04-20] MEDS ORDERED: Furosemide 20 MG Tablet PO SCH (09:00)
[2018-04-20] MEDS: Carvedilol 12.5 MG Tablet PO SCH (10:17)
[2018-04-20] MEDS: Ascorbic Acid 500 MG Tablet PO SCH (10:17)
[2018-04-20] MEDS: Pantoprazole Sodium 20 MG DR Tablet PO SCH (10:17)
== END 2018-04-20 17:30 | disposition home or self-care (01) ==
LOC: NEDA 15:42 → NEPE 15:42 → NEDA 20:29 → NEPHCDU 20:42
PROVIDERS: ADMIT Hospitalist; ATTEND Hospitalist
DX: I50.32 Chronic diastolic (congestive) heart failure; F41.9 Anxiety disorder, unspecified; E78.5 Hyperlipidemia, unspecified; I48.91 Unspecified atrial fibrillation; I11.0 Hypertensive heart disease with heart failure; Z96.653 Presence of artificial knee joint, bilateral; F17.290 Nicotine dependence, other tobacco product, uncomplicated; Z79.01 Long term (current) use of anticoagulants; Z88.5 Allergy status to narcotic agent; I34.0 Nonrheumatic mitral (valve) insufficiency; Z96.643 Presence of artificial hip joint, bilateral; I95.9 Hypotension, unspecified; N28.9 Disorder of kidney and ureter, unspecified; I77.819 Aortic ectasia, unspecified site